=== PATIENT | male | born 1960 | race Caucasian/White ===

== ENCOUNTER 2021-01-20 09:30 | Outpatient (CLI) | payer OTHER, SELFPAY ==
--- NOTE | ~2021-01-20 | CT_ITS ---
EXAMINATION: CT abdomen pelvis wo/w con DATE: 01/20/2021 10:22 INDICATION: Microscopic hematuria TECHNIQUE: Computed tomography (CT) of the abdomen and pelvis was performed without and subsequently with 130 cc Omnipaque 350 intravenous contrast. Automated exposure control and iterative reconstructi on technique were employed. Exam dose: 2901.86 mGy-cm total exam DLP. COMPARISON: None. FINDINGS: Calcified middle lobe and lower lobe pulmonary granulomas and calcified right hilar nodes, consistent with old pulmonary granulomatous disease. The included lung bases are clear of infiltrate or consolidation. Normal heart size. No pericardial or pleural effusion. There are innumerable gallstones prominently variable size, largely filling the gallbladder lumen. Th ere is gallbladder wall thickening up to 5 mm or greater, and mild pericholecystic fat stranding. Fin dings are consistent with chronic or acute cholecystitis. The liver is unremarkable. Normal splenic size. No pancreatic mass lesion or pancreatic duct dilatati on. Approximately 3 mm stone is noted in the distal common bile duct. Normal morphology of the right adrenal gland. Probable 9 mm left adrenal adenoma. There are bilateral renal cysts, measuring up to 2.9 cm on the right, 7.3 cm on the left. No right ur inary tract calculus. Several small nonobstructing left renal calculi measuring up to 2.5 mm. No left ureteral calculus. No hydronephrosis of either kidney. The urinary bladder is unremarkable. Mild prostate enlargement. Prostate calcifications. Normal caliber of the abdominal aorta. No intraperitoneal or retroperitoneal or pelvic mass lesion or adenopathy or ascites. Small fat-containing umbilical hernias. Normal appendix. Minimal sigmoid diverticulosis; no CT evidence of diverticulitis. No bowel obstructi on, bowel wall thickening, pneumatosis or intraperitoneal free air. There is a large lytic expansile lesion with areas of cortical thinning and cortical destruction invo lving the posterior left acetabulum extending into the left ischium and left inferior pubic ramus. Benign appearing lucency of L5 with sclerotic margin. IMPRESSION: Innumerable gallstones Prominent gallbladder wall thickening and minimal pericholecystic fat stranding; findings may be cons istent with chronic or acute cholecystitis 3 mm stone in the distal common bile duct Bilateral renal cysts Several small nonobstructing left renal calculi measuring up to 2.5 mm No ureteral calculi or hydroureteronephrosis of either kidney Mild prostate enlargement; prostate calcifications Minimal sigmoid diverticulosis Large lytic expansile lesion of the posterior left acetabulum extending into the left ischium and lef t inferior pubic ramus Reviewed, dictated and finalized at [facility]. Reviewed, dictated and finalized at [facility]. IMPRESSION: Innumerable gallstones Prominent gallbladder wall thickening and minimal pericholecystic fat stranding ; findings may be consistent with chronic or acute cholecystitis 3 mm stone in the distal common bile duct Bilateral renal cysts Several small nonobstructing left renal calculi measuring up to 2.5 mm No ureteral calculi or hydroureteronephrosis of either kidney Mild prostate enlargement; prostate calcifications Minimal sigmoid diverticulosis Large lytic expansile lesion of the posterior left acetabulum extending into th e left ischium and left inferior pubic ramus
[2021-01-20 10:03] LABS: Estimated Glomerular Filt Rate 48
== END 2021-01-20 09:31 | disposition home or self-care (01) ==
PROVIDERS: PCP Emergency Medicine; Visit Provider Urology
DX: R31.29 Other microscopic hematuria (principal); N28.1 Cyst of kidney, acquired; N20.0 Calculus of kidney; N40.0 Benign prostatic hyperplasia without lower urinary tract symptoms; K57.30 Diverticulosis of large intestine without perforation or abscess without bleeding
CPT/HCPCS: 74178; Q9967

== ENCOUNTER 2021-04-04 10:33 | Outpatient (CLI) | payer OTHER, SELFPAY ==
--- NOTE | ~2021-04-04 | MR_ITS ---
EXAMINATION: MR pelvis wo/w con DATE: 04/04/2021 12:04 INDICATION: Lytic lesion of left ischium. TECHNIQUE: Magnetic resonance imaging (MRI) of the pelvis was performed without and with 20 mL MultiH ance intravenous contrast. Sequences included axial, coronal, and sagittal T1-weighted FSE, T2-weight ed FS FSE, coronal and postcontrast T1-weighted FS FSE. COMPARISON: CT abdomen and pelvis 01/20/2021 FINDINGS: Bone alignment is normal. No fracture. There is a benign bone island in right ilium. There is a heman gioma in L5 vertebral body. There is a mass in left ischium characterized by bone expansion, increase d T2-weighted signal intensity, and contrast enhancement measuring 5.7 x 3.0 x 6.9 cm. The prostate i s mildly enlarged. There is prominent fat in the inguinal canals that may be hernias. There are no pa thologically enlarged lymph nodes. There is no free intraperitoneal fluid. IMPRESSION: 1. 6.9 cm expansile mass in left ischium, stable from 01/20/21. The differential diagnosis includes pl asmacytoma and metastatic disease. Reviewed, dictated and finalized at [facility]. IMPRESSION: 1. 6.9 cm expansile mass in left ischium, stable from 01/20/21. The differential diagnosis includes plasmacytoma and metastatic disease.
[2021-04-04 11:00] LABS: Estimated Glomerular Filt Rate 56
== END 2021-04-04 10:34 | disposition home or self-care (01) ==
LOC: ANHIMG 10:34
PROVIDERS: PCP Emergency Medicine
DX: D21.9 Benign neoplasm of connective and other soft tissue, unspecified (principal); M89.8X5 Other specified disorders of bone, thigh
CPT/HCPCS: 72197; A9577

== ENCOUNTER 2022-01-08 10:02 | Outpatient (CLI) | payer OTHER, SELFPAY ==
--- NOTE | ~2022-01-08 | MR_ITS ---
EXAMINATION: MR pelvis wo/w con DATE: 01/08/2022 11:09 INDICATION: Chondromyxoid fibroma bone TECHNIQUE: Magnetic resonance imaging (MRI) of the pelvis was performed without and with 15 mL Multih ance intravenous contrast. A marker was placed over the mass. Sequences included axial T1-weighted F SE, axial T2-weighted FS FSE, coronal T1-weighted FSE, coronal T2-weighted FS FSE, sagittal T1-weight ed FSE and sagittal T2-weighted FS FSE. Precontrast axial T1-weighted FS FSE and post contrast axial, sagittal and coronal T1-weighted FS FSE were also obtained. COMPARISON: MR dated 03/[address] dated 01/20/2021 FINDINGS: T2 hyperintense avidly enhancing lesion centered in the left ischial extend the short distance anteri angel into the lateral aspect of the inferior pubic ramus and superiorly to the posterior inferior mar gin of the left acetabulum. The lesion measures 7.8 x 3.6 x 4.9 cm which is slightly larger than on t he prior MRI at which time corresponding dimensions were 7.5 x 3.5 x 4.7 cm. There is endosteal scall oping and expansion of the bone which demonstrates a lobular margins along the anterolateral aspect o f the left inferior pubic ramus. Very thin low signal intensity along the margins of the mass suggest ing persistent very thin cortex as seen on earlier CT dated 01/20/2021. Unchanged low signal intensity bone island in the right ilium. T1 hyperintense hemangioma in the L5 vertebral body. No other bone l esions identified. Prostatomegaly. No pathologically enlarged pelvic or inguinal lymphadenopathy. No free fluid in the pelvis. IMPRESSION: 1. 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 Reviewed, dictated and finalized at [facility]. IMPRESSION: 1. Mild increase in size of a now 7.8 x 3.6 x 4.9 cm expansile bone lesion in t he left ischial, per provided history chondral myxoid fibroma, although MRI valorie ging features are nonspecific.
[2022-01-08 10:31] LABS: Estimated Glomerular Filt Rate 56
== END 2022-01-08 10:03 | disposition home or self-care (01) ==
PROVIDERS: PCP Emergency Medicine
DX: D16.9 Benign neoplasm of bone and articular cartilage, unspecified (principal)
CPT/HCPCS: 72197; A9577

== ENCOUNTER 2023-01-13 18:22 | Inpatient (IN) | payer BC, OTHER, SELFPAY ==
[2023-01-13] VITALS (9 sets, daily range): BP systolic 121–191; BP diastolic 75–116; PULSE 114–134; RESP 20–33; TEMP 36.9–38.7; O2SAT 93–99; BMI 31.4
--- NOTE | ~2023-01-13 | XR_ITS ---
EXAMINATION: XR ERCP DATE: 01/14/2023 14:55 CDT INDICATION: STONES . TECHNIQUE: 6 fluoroscopic images of the right upper quadrant were obtained during ERCP performed by t blake surgeon. I was not present in the operating room. Fluoroscopy exposure time was 99.3 seconds. Air Kerma 61.24 mGy. DAP 1.47 mGym2. COMPARISON: Pelvis 01/13/2023 FINDINGS: Multiple gallstones. Small hyperdensity at the distal common duct may represent the previously descri bed stone. An endoscope is advanced into the second portion of the duodenum. Wire access accomplished into the biliary system. IMPRESSION: Fluoroscopic documentation of ERCP. Please refer to the operative note for complete procedural detail s . Reviewed, dictated and finalized at [facility]. IMPRESSION: Fluoroscopic documentation of ERCP. Please refer to the operative note for comp lete procedural details .
--- NOTE | ~2023-01-13 | CT_ITS ---
CT of the Abdomen and Pelvis: Indication: Abdominal pain Technique: 2.5 mm axial scans were obtained through the abdomen and pelvis following intravenous adm inistration of 100 cc of Omnipaque 350. Dose reduction technique was used on this scan by utilizing a utomated exposure control and iterative reconstruction technique. The dose-length product (DLP) was 1 318.08 mGy-cm. COMPARISON: 01/20/2021 Findings: Scans through the lung bases are unremarkable. The liver, spleen, pancreas, and right adrenal gland are within normal limits. Bilateral renal cysts are present. Multiple gallstones are present, probable gallbladder wall thickening and mild perichole cystic inflammatory change. There is a small stone in the distal common bile duct (axial image 81). S table small left adrenal nodule. No evidence of aortic aneurysm. No lymphadenopathy. No bowel obstruction or bowel wall thickening. There is no evidence to suggest acute appendicitis. Images through the pelvis were performed. 3 mm urinary bladder stone. Prostate gland and seminal vesi cles are unremarkable. No ascites. Small fat-containing inguinal hernias are present bilaterally. Impression: Cholelithiasis. Associated gallbladder wall thickening and pericholecystic inflammatory stranding is highly suspicious for superimposed acute cholecystitis. Choledocholithiasis, with probable small stone at the distal common duct. Stable small left adrenal nodule. Stability since 01/20/2021 is compatible with benignity. Reviewed, dictated and finalized at [facility]. Impression: Cholelithiasis. Associated gallbladder wall thickening and pericholecystic infl ammatory stranding is highly suspicious for superimposed acute cholecystitis. Choledocholithiasis, with probable small stone at the distal common duct. Stable small left adrenal nodule. Stability since 01/20/2021 is compatible with benignity.
--- NOTE | ~2023-01-13 | XR_ITS ---
Portable chest x-ray Comparison: None Clinical History: Shortness of breath, fever Findings: There is linear right basilar atelectasis or scarring. Lungs are otherwise clear. Cardiom ediastinal silhouette is stable. Bones and soft tissues are unremarkable. Impression: Linear right basilar atelectasis or scarring, otherwise clear lungs. Reviewed, dictated and finalized at [facility]. Impression: Linear right basilar atelectasis or scarring, otherwise clear lungs.
--- NOTE | 2023-01-13 18:30 | ECG_ITS ---
Measurements Intervals Holcomb Rate: 130 P: 52 HI: 164 QRS: -3 QRSD: 105 T: 5 QT: 327 QTc: 481 Interpretive Statements SINUS TACHYCARDIA POSSIBLE ANTERIOR MYOCARDIAL INFARCTION , OF INDETERMINATE AGE [30 ms Q WAVE IN V3/V4, OR R < 0.2 mV IN V4] ABNORMAL ECG NO PREVIOUS ECG AVAILABLE FOR COMPARISON Electronically Signed On 01-16-2023 9:15:45 CDT by Cristopher Tucker M.D.
[2023-01-13 18:41] LABS: Basophils Absolute Auto 0.1 K/mm3 (0.0-0.1); Basophils Percent Auto 0.5 % (0.2-1.2); Eosinophils Percent Auto 0.2 % (0-4.4); Hematocrit 49.9 % (42.0-52.0); Hemoglobin 17.1 g/dL (14.0-18.0); Immature Granulocyte Absolute 0.08 K/mm3 (0.00-0.031); Immature Granulocyte Percent A 0.5 % (0-0.5); Lymphocytes Absolute Auto 2.84 K/mm3 (0.9-3.2); Lymphocytes Percent Auto 16.1 % (18.3-44.2); Mean Corpuscular HGB Conc 34.3 g/dl (32-36); Mean Corpuscular Hemoglobin 31.1 pg (26-34); Mean Corpuscular Volume 90.7 fl (80-100); Mean Platelet Volume 10.3 fl (7.4-10.4); Monocytes Absolute Auto 1.1 K/mm3 (0.1-0.6); Monocytes Percent Auto 6.3 % (2.6-8.5); Neutrophils Absolute Auto 13.5 K/mm3 (1.3-6.7); Neutrophils Percent Auto 76.4 % (45.5-73.1); Platelet Count Result 264 k/mm3 (150-375); White Blood Count 17.7 K/mm3 (4.5-10.0)
[2023-01-13] MEDS: SODIUM CHLORIDE 0.9% IV 1,000 ML 999 ML IV CONT (18:50)
[2023-01-13] MEDS: ONDANSETRON INJ 4 MG/2 ML VIAL IV PUSH (18:50)
[2023-01-13] MEDS: MORPHINE SULFATE (*CRX) 4 MG/ML INJ IV PUSH (18:50)
[2023-01-13 18:54] LABS: Alanine Aminotransferase 36 U/L (6-50); Albumin Level 4.7 g/dL (3.5-5.1); Alkaline Phosphatase 94 U/L (38-126); Anion Gap 13 mmol/L (8-16); Aspartate Amino Transferase 29 U/L (17-59); Bilirubin,Total 2.8 mg/dL (0.2-1.3); Blood Urea Nitrogen 18 mg/dL (9-20); Carbon Dioxide 27 mmol/L (22-30); Chloride 98 mmol/L (98-107); Estimated CRCL calculation 59 ml/min; Estimated Glomerular Filt Rate 44; Glucose 175 mg/dL (65-110); Potassium 3.3 mmol/L (3.4-5.0); Sodium 138 mmol/L (137-145)
[2023-01-13 18:56] LABS: INR 1.1; Prothrombin Time 15.1 Seconds (11.1-14.7)
[2023-01-13] MEDS: PIPERACILLN/TAZ 3.375GM/NS50ML 3.375 GM/50 ML BAG IVPB ×2 (19:26→23:52)
[2023-01-13] MEDS: ACETAMINOPHEN 325 MG TABLET 650 MG PO (19:26)
[2023-01-13 19:30] LABS: Influenza A QL RT-PCR Negative (Negative); Influenza B QL RT-PCR Negative (Negative); RSV RNA, RT-PCR Negative (Negative); SARS-CoV-2 RNA PCR Negative (Negative)
--- NOTE | 2023-01-13 20:02 | ED.GENADULT ---
HPI - General Adult General Chief complaint: Shortness of Breath/Dyspnea Stated complaint: FEVER, SOB Time Seen by Provider: 01/13/23 18:41 History of Present Illness HPI narrative: Patient is a 63-year-old male who presents ER with sudden onset abdominal pain. Began this evening. Associated with fever has been ongoing throughout the day as well as some shortness of breath due to the pain. Has history of gallstones but denies ever having pain related to his gallstones. Has some nausea but no vomiting. No diarrhea. Denies chest pain or chest pressure or productive cough. No alleviating factors of the pain. No radiation. Mainly right upper quadrant. Patient is having some chills. Related Data Home Medications Medication Instructions Recorded Confirmed amlodipine 5 mg tablet mg 01/13/23 01/13/23 cyclobenzaprine 10 mg tablet mg 01/13/23 metoprolol tartrate 100 mg tablet mg 01/13/23 Allergies Allergy/AdvReac Type Severity Reaction Status Date / Time No Known Allergies Allergy Unknown Unverified 06/08/14 15:51 Review of Systems Review of Systems: All systems reviewed & are unremarkable except as noted in HPI and below Constitutional: Constitutional: Reports chills, Denies fatigue and Reports fever(s) ENT: Denies nasal congestion and Denies sore throat Cardiovascular: Cardiovascular: Denies chest pain, Denies rapid heart rate and Denies radiating jaw, neck or arm pain Respiratory: Respiratory: Denies cough and Reports dyspnea Gastrointestinal: Gastrointestinal: Reports abdominal pain, Denies diarrhea, Reports nausea and Denies vomiting Integumentary/Breasts: Skin/Breast: Denies pruritus, Denies erythema and Denies rash PMF Past Medical History Medical History (Updated 01/13/23 @ 21:07 by Toma Horan NP) Back pain Choledocholithiasis with acute cholecystitis Closed right hand fracture Hypertension Surgical History Surgical History History of removal of pigmented skin lesion History of tonsillectomy Family History Family History Father Malignant neoplasm of prostate Mother Family history of primary malignant neoplasm of liver Social History Social History (Updated 01/13/23 @ 21:02 by Toma Horan NP) Social History: He lives with his who is the power defense attorney. He has 2 children. He works for [employer]. Code status full code Smoking status: Never smoker Alcohol intake: current Exam Narrative: GENERAL: Uncomfortable-appearing, well-nourished, and in mild distress. HEAD: Normocephalic, atraumatic. EYES: PERRL and EOMI. ENT: Mucous membranes moist. CHEST: Clear to auscultation. No respiratory distress. HEART: Tachycardic and regular. Normal peripheral pulses. ABDOMEN: Soft, RUQ tenderness with guarding, nondistended, normal active bowel sounds. EXTREMITIES: Normal range of motion. No edema. SKIN: Warm, dry, no rash. NEURO: Alert and oriented x3. PSYCH: Normal mood and affect. Course Course Emergency Course: Patient's pain improving after Dilaudid, minimal improvement with morphine. Tylenol given for fever. Patient being hydrated and will be kept n.p.o. Both GI and general surgery consulted. Admitted to the hospitalist service. Patient has received IV Zosyn. Blood pressure improved after pain control Vital Signs Vital signs: Vital Signs Temperature 98.7 F 01/13/23 18:27 Pulse Rate 131 H 01/13/23 18:27 Respiratory Rate 30 H 01/13/23 18:27 Blood Pressure 191/102 H 01/13/23 18:27 Pulse Oximetry 95 01/13/23 18:27 Oxygen Delivery Room Air 01/13/23 18:27 Temperature 100.3 F H 01/13/23 20:31 Pulse Rate 130 H 01/13/23 20:31 Respiratory Rate 32 H 01/13/23 20:31 Blood Pressure 157/89 H 01/13/23 20:31 Pulse Oximetry 94 01/13/23 20:31 Oxygen Delivery Nasal Cannula 01/13/23 20:15 Oxygen Flow Rate
[2023-01-13] MEDS: HYDROmorphone HCL INJ (*CRX) 1 MG/ML SYR IV PUSH ×2 (20:08→21:49)
--- NOTE | 2023-01-13 20:15 | PC.NURSE ---
Patient began falling asleep and SPO2 dropped down to 88%. Patient was given O2 via nasal cannula at 2L/min. Patient's SPO2 was then 93%.
[2023-01-13 20:16] LABS: Lipase 355 U/L (23-300)
--- NOTE | 2023-01-13 20:34 | PM.IMHP ---
H&P: HPI History of Present Illness Date/Time: 01/13/23 20:34 Chief Complaint: Shortness of breath Narrative: This is a 63-year-old male patient who has a history of having chronic back pain and hypertension. The patient stated that he has been sick for 3 days with right epigastric pain with nausea vomiting. He is having difficulty taking a deep breath and catching his breath. He has no prior heart or lung issues. His white count is 17.7. He has a shift to the left with neutrophil percentage 76.4. Creatinine is 1.6. GFR is 44 glucose is 175. Total bilirubin is 2.8. Lipase is 355. The patient is negative for influenza A/B RSV and COVID. His blood pressure is 157/89, pulse is 130, respirations 32 and temperature 37.9?. Abdominal pelvis CT was read as the followingholelithiasis. Associated gallbladder wall thickening and pericholecystic inflammatory stranding is highly suspicious for superimposed acute cholecystitis. Choledocholithiasis, with probable small stone at the distal common duct. Stable small left adrenal nodule. Stability since 01/20/2021 is compatible with benignity. Chest x-ray was read as linear right basilar atelectasis or scarring otherwise clear lungs. The patient has oxygen on at 2 L per nasal cannula and does not typically wear home oxygen. The patient was given morphine, Zofran, IV fluids, Zosyn, Tylenol, and Dilaudid. Surgery and GI have been consulted. The patient remains NPO but is requesting something to drink at this time. I explained to him that eating something would cause the gallbladder to spasm and cause him more pain. The patient is stating that he would like to have some ice chips. The patient is being admitted to observation status on the date of service of 01/13/2023. Review of Systems Review of Systems: All systems reviewed & are unremarkable except as noted in HPI and below Constitutional: Constitutional: Reports as per HPI and Reports no additional constitutional complaints Eyes: Eyes: Reports as per HPI and Reports no additional eye complaints ENT: Reports system reviewed and no additional complaints, except as documented and Reports Normal hearing present Cardiovascular: Cardiovascular: Reports no additional cardiovascular complaints Respiratory: Respiratory: Reports no additional respiratory complaints and Reports no additional respiratory complaints Gastrointestinal: Gastrointestinal: Reports as per HPI and Reports no additional gastrointestinal complaints Musculoskeletal: Musculoskeletal: Reports no additional musculoskeletal complaints Integumentary/Breasts: Skin/Breast: Reports system reviewed and no additional complaints, except as docu and Reports as per HPI Neurologic: Reports system reviewed and no additional complaints, except as documented, Reports as per HPI and Reports Normal hearing present Psychiatric: Psychiatric: Reports no additional psychiatric complaints and Reports as per HPI Endocrine: Endocrine: Reports no additional endocrine complaints Hematologic/Lymphatic: Hematologic/Lymphatic: Reports no additional hematologic/lymphatic complaints Allergic/Immunologic: Allergic/Immunologic: Reports no additional allergic/immunologic complaints [facility], [facility] Past Medical History Medical History (Updated 01/13/23 @ 21:07 by Toma Horan NP) Back pain Choledocholithiasis with acute cholecystitis Closed right hand fracture Hypertension Surgical History Surgical History History of removal of pigmented skin lesion History of tonsillectomy Family History Family History Father Malignant neoplasm of prostate Mother Family history of primary malignant neoplasm of liver Social History Social History (Updated 01/13/23 @ 21:02 by Toma Horan NP) Social History: He lives with his who is the power research attorney. He has 2 children. He works for [employer]
[2023-01-13 20:45] LABS: Lactic Acid Reflex 1.6 mmol/L (0.7-2.0)
--- NOTE | 2023-01-13 21:15 | ADMGEN ---
This patient, Erlinda Boles, was admitted to IMU Room 213-01. Patient/family oriented to hospital policies and general routines including ID bracelet, bed and alarms, visiting hours, pain management, procedures, bathroom and other care routines, personal items, smoking policy, room service/diet, and visiting hours. Information on how to activate the Rapid Response Team has been discussed. Patient/Family are encouraged to report perceived risks to care and to ask questions if they do not understand what they are told or what they should do.
[2023-01-13] MEDS: SODIUM CHLORIDE 0.9% IV 1,000 ML 125 ML IV CONT (21:44)
[2023-01-13 22:42] LABS: Appearance Urine Clear (Clear); Bilirubin Urine 1+ (Negative); Blood Urine Trace-lysed (Negative); Color Urine Yellow (Yellow); Glucose Urine UA Negative (Negative); Ketones Urine 2+ mg/dL (Negative); Leukocyte Esterase Ur Negative LEU/UL (Negative); Nitrate Urine Negative (Negative); Protein Urine 2+ mg/dL (Negative); Specific Grav Ur <= 1.005 (1.001-1.035); Urobilinogen Urine 0.2 mg/dL (<2.0); pH Urine 5.5 (5.0-9.0)
[2023-01-13 23:00] LABS: Add Urine Microscopic? YES
[2023-01-13 23:01] LABS: RBC Urine 0-2 /hpf (0-2); WBC Urine 0-5 /hpf (0-3)
[2023-01-14] VITALS (29 sets, daily range): BP systolic 97–187; BP diastolic 55–96; PULSE 68–129; RESP 16–22; TEMP 36.4–39.6; O2SAT 89–97
[2023-01-14 04:43] LABS: Basophils Percent Auto 0.3 % (0.2-1.2); Hematocrit 42.7 % (42.0-52.0); Hemoglobin 14.5 g/dL (14.0-18.0); Immature Granulocyte Absolute 0.05 K/mm3 (0.00-0.031); Immature Granulocyte Percent A 0.4 % (0-0.5); Lymphocytes Absolute Auto 1.01 K/mm3 (0.9-3.2); Lymphocytes Percent Auto 8.5 % (18.3-44.2); Mean Corpuscular Hemoglobin 30.9 pg (26-34); Mean Corpuscular Volume 90.9 fl (80-100); Mean Platelet Volume 10.8 fl (7.4-10.4); Monocytes Absolute Auto 0.7 K/mm3 (0.1-0.6); Monocytes Percent Auto 5.6 % (2.6-8.5); Neutrophils Absolute Auto 10.1 K/mm3 (1.3-6.7); Neutrophils Percent Auto 85.2 % (45.5-73.1); Platelet Count Result 189 k/mm3 (150-375); Red Cell Distribution Width 12.9 % (11.5-14.5); White Blood Count 11.8 K/mm3 (4.5-10.0)
[2023-01-14 04:54] LABS: Alanine Aminotransferase 29 U/L (6-50); Albumin Level 3.5 g/dL (3.5-5.1); Alkaline Phosphatase 59 U/L (38-126); Anion Gap 8 mmol/L (8-16); Aspartate Amino Transferase 24 U/L (17-59); Bilirubin,Total 2.4 mg/dL (0.2-1.3); Blood Urea Nitrogen 20 mg/dL (9-20); Calcium 7.8 mg/dL (8.4-10.2); Carbon Dioxide 25 mmol/L (22-30); Chloride 104 mmol/L (98-107); Estimated CRCL calculation 66 ml/min; Estimated Glomerular Filt Rate 51; Glucose 138 mg/dL (65-110); Lactate Dehydrogenase 128 U/L (120-246); Lipase 43 U/L (23-300); Magnesium 1.8 mg/dL (1.6-2.3); Potassium 3.8 mmol/L (3.4-5.0); Sodium 137 mmol/L (137-145)
[2023-01-14 04:55] LABS: Lactic Acid Reflex 1.6 mmol/L (0.7-2.0)
[2023-01-14 05:06] LABS: Hemoglobin A1C 5.4 % (<5.7)
[2023-01-14 05:46] LABS: Thyroid Stimulating Hormone Reflex 0.873 uIU/mL (0.465-4.68)
[2023-01-14] MEDS: PIPERACILLN/TAZ 3.375GM/NS50ML 3.375 GM/50 ML BAG IVPB ×4 (05:48→22:56)
[2023-01-14] MEDS: SODIUM CHLORIDE 0.9% IV 1,000 ML 125 ML IV CONT (05:48)
--- NOTE | 2023-01-14 06:56 | WPDGICN ---
Assessment and Plan Assessment and plan (1) Choledocholithiasis with acute cholecystitis: Code(s): K80.42 - Calculus of bile duct with acute cholecystitis without obstruction Status: Acute Assessment and Plan: I discussed the common bile duct stone with the patient using a diagram. Although CT from 2 years ago also showed a stone in the distal duct he has not had any significant attacks between then and now and cannot recall how he felt med for CT scan was done. I described ERCP and sphincterotomy CT scan shows: There are innumerable gallstones prominently variable size, largely filling the gallbladder lumen. There is gallbladder wall thickening up to 5 mm or greater, and mild pericholecystic fat stranding. Findings are consistent with chronic or acute cholecystitis. The liver is unremarkable. Normal splenic size. No pancreatic mass lesion or pancreatic duct dilatation. Approximately 3 mm stone is noted in the distal common bile duct. Normal morphology of the right adrenal gland. Probable 9 mm left adrenal adenoma (2) Hyperbilirubinemia: Code(s): E80.6 - Other disorders of bilirubin metabolism Status: Acute Assessment and Plan: bilirubin is 2.8. He did notice his urine was much darker yesterday. He has had no itching. He did not see any visible discoloration of his eyes. Plan ERCP and sphincterotomy with possible stent placement today. I discussed with him the procedure in also possible risks such as bleeding or perforation of the possibility of pancreatitis. Pancreatitis could result in prolonged hospitalization and rare cases even surgery. GI Consult Note Consult date/time: 01/14/23 06:56 HPI: Erlinda Boles is a 63 year old male Who presents emergency room yesterday for having been uncomfortable for the past 3 days with epigastric pain and nausea and vomiting. It would be more painful when he tried to take a deep breath. He does not believe that he was running a fever. As the pain got worse yesterday he also noticed that his urine was becoming darker. He was found in the emergency room to have a bilirubin of 2.8. Lipase is also elevated though transaminases are in the normal range. CT scan did show coli lithiasis and choledocholithiasis with a stone in the distal common bile duct. In comparison to a CT scan in 2020 that Study also showed a small stone in the distal common bile duct. He cannot recall whether he had pain with that; he was never told about that finding. Review of Systems Review of Systems: All systems reviewed & are unremarkable except as noted in HPI and below PMFSH Past Medical History Medical History (Updated 01/14/23 @ 06:59 by Aram Maria MD) Back pain Choledocholithiasis with acute cholecystitis Closed right hand fracture Hypertension Surgical History Surgical History History of removal of pigmented skin lesion History of tonsillectomy Family History Family History Father Malignant neoplasm of prostate Mother Family history of primary malignant neoplasm of liver Social History Social History Social History: He lives with his who is the power collections attorney. He has 2 children. He works for [employer]. Code status full code Smoking status: Never smoker Alcohol intake: never Substance use: never Lack of Transportation: No Lack of Food: Never True Current Housing: I Have Housing Concerned About Future Housing: No Difficulty Paying Gas/Electric Bills: No Difficulty Paying for Meds: No Currently Unemployed: No Education: High School Diploma/GED Difficulty w/ Childcare or Family Care: No Spiritual care concerns: No Meds Home Medications and Allergies Home Medications Medication Instructions Recorded Confirmed Ty
[2023-01-14] MEDS: HYDROmorphone HCL INJ (*CRX) 1 MG/ML SYR IV PUSH (08:45)
[2023-01-14] MEDS: amLODIPine BESYLATE 5 MG TABLET PO (08:47)
[2023-01-14] MEDS: METOPROLOL TARTRATE 50 MG TAB 100 MG PO ×2 (08:47→20:29)
--- NOTE | 2023-01-14 09:04 | PM.IMPN ---
Progress Note: A&P Assessment and Plan (1) Choledocholithiasis with acute cholecystitis: Code(s): K80.42 - Calculus of bile duct with acute cholecystitis without obstruction Status: Acute Assessment and Plan: GI is consulted as is General surgery. Patient understands he is having ERCP. (2) Sepsis: Code(s): A41.9 - Sepsis, unspecified organism Status: Acute Assessment and Plan: Due to acute cholecystitis. Patient on Zosyn. (3) Hyperbilirubinemia: Code(s): E80.6 - Other disorders of bilirubin metabolism Status: Acute Assessment and Plan: Due to choledocholithiasis (4) Hypertension: Code(s): I10 - Essential (primary) hypertension Status: Acute Assessment and Plan: Continue metoprolol and amlodipine. Blood pressure reviewed 01/14 Plan ERCP then possible cholecystectomy Continue antibiotics Antipyretics IV fluids Telemetry Remain on IMU Time Spent With Patient Time with patient: 25 - 35 minutes Subjective Date/time seen: 01/14/23 09:04 Interval history: This is a 63-year-old male patient who was admitted to the hospital due to fever, abdominal pain and nausea vomiting. Patient found to have acute cholecystitis and choledocholithiasis. He is noted to be running a fever and chills this morning. Patient is on IV Zosyn and sepsis panel has been drawn with blood cultures in process from the ER. Patient reports that he is supposed to have ERCP today. Review of Systems Review of Systems: All systems reviewed & are unremarkable except as noted in HPI and below Exam Narrative: GENERAL: Moderately ill-appearing, alert and oriented. He is currently experiencing chills with fever. He is pleasant and conversant in full sentences. HEENT: Pupils are equally round and briskly reactive to light. Extraocular muscles are intact. Oral mucous membranes are moist without lesions. NECK: The patient has no noted JVD. No adenopathy is appreciated. CHEST/LUNGS: Lungs are clear bilaterally without rhonchi, rales, or wheezes. There is no subcutaneous air appreciated. There is no tenderness to the chest wall. HEART: The patient has a tachycardic rate and regular rhythm. No murmurs, rubs, or gallops are appreciated. Distal pulses are 2+. ABDOMEN: The patient?s abdomen tender epigastric right upper quadrant mildly distended with hypoactive bowel sounds. EXTREMITIES: The patient has no peripheral edema. There is no focal long bone tenderness or deformity. SKIN: The patient?s skin is warm and dry, without rashes or lesions. PSYCHIATRIC: The patient has normal mental status and has an appropriate affect. NEUROLOGIC: There are no gross deficits to the cranial nerves. Patient ambulates with steady gait. Objective Data Vital Signs Vital Signs: Vital Signs - 24 hr 01/13/23 18:27 01/13/23 18:45 01/13/23 19:20 Temperature 37.1 C Pulse Rate 131 H 130 H Respiratory Rate 30 H Blood Pressure 191/102 H Pulse Oximetry 95 Oxygen Delivery Room Air Room Air Oxygen Flow Rate 01/13/23 19:20 01/13/23 19:56 01/13/23 20:15 Temperature 38.6 C H 38.7 C H Pulse Rate 128 H Respiratory Rate 33 H Blood Pressure 189/116 H Pulse Oximetry 93 93 Oxygen Delivery Nasal Cannula Oxygen Flow Rate 2 01/13/23 20:31 01/13/23 21:28 01/13/23 22:00 Temperature 37.9 C H 37.4 C Pulse Rate 130 H 134 H 119 H Respiratory Rate 32 H 20 Blood Pressure 157/89 H 122/79 Pulse Oximetry 94 99 Oxygen Delivery Oxygen Flow Rate 01/13/23 21:26 01/13/23 21:30 01/13/23 23:21 Temperature 36.9 C Pulse Rate 124 H 114 H Respiratory Rate 20 Blood Pressure 121/75 Pulse Oximetry 97 Oxygen Delivery Room Air Oxygen Flow Rate 01/14/23 00:00 01/14/23 00:00 01/14/23 02:00 Temperature Pulse Rate 106 H 103 H Respiratory Rate Blood Pressure Pulse Oximetry Oxygen Delivery Room Air Oxygen Flow Rate 01/14/23 03:44 01/14/23 04
--- NOTE | 2023-01-14 12:23 | PM.CNGS ---
Assessment and Plan Assessment and plan (1) Acute cholangitis: Code(s): K83.09 - Other cholangitis Status: Acute Assessment and Plan: Patient has signs of acute cholecystitis, cholelithiasis, choledocholithiasis. Is having fevers signs of sepsis concerning for acute cholangitis. He has already been seen by Dr. Maria and plans are ERCP today. Discussed planning laparoscopic cholecystectomy based on ERCP results. Continue IV antibiotics and supportive care at this time. (2) Sepsis: Code(s): A41.9 - Sepsis, unspecified organism Status: Acute (3) Choledocholithiasis with acute cholecystitis: Code(s): K80.42 - Calculus of bile duct with acute cholecystitis without obstruction Status: Acute (4) Hypertension: Code(s): I10 - Essential (primary) hypertension Status: Acute History of Present Illness Consult details Consult date: 01/14/23 Reason for consult: other (cholecystitis) Requesting physician: Stanislaw Mary MD Narrative: This is a 63-year-old man who I am asked to see for acute cholecystitis. He presented to the emergency department yesterday with abdominal pain, nausea, vomiting, and fevers. He states that the fever started on Saturday and he was just generally feeling unwell. He began experiencing the abdominal pain yesterday. He was told he gallstones several years ago but surgery was never recommended at time. I believe his workup at that time was for hematuria and the gallstones were an incidental finding. He does not recall any particular food that he ate that caused his pain or fevers this time. In the emergency department he was noted to have signs of sepsis with fever, tachycardia, and leukocytosis. CT showed evidence of cholelithiasis with cholecystitis and choledocholithiasis. He was admitted and started on broad-spectrum IV antibiotics. He has not noticed any real significant improvement in his pain and he is still spiking fevers. Review of Systems Review of Systems: All systems reviewed & are unremarkable except as noted in HPI and below Constitutional: Constitutional: Reports chills and Reports fever(s) Eyes: Eyes: Denies change in vision ENT: Denies hearing loss, Denies neck pain and Denies sore throat Cardiovascular: Cardiovascular: Denies chest pain and Denies dyspnea Respiratory: Respiratory: Denies cough, Denies dyspnea and Denies wheezing Gastrointestinal: Gastrointestinal: Reports as per HPI Genitourinary: Genitourinary: Denies hematuria and Denies dysuria Musculoskeletal: Musculoskeletal: Denies arthralgias, Denies joint swelling and Denies neck pain Allergic/Immunologic: Allergic/Immunologic: Denies wheezing [facility] Past Medical History Medical History Back pain Choledocholithiasis with acute cholecystitis Closed right hand fracture Hypertension Surgical History Surgical History History of removal of pigmented skin lesion History of tonsillectomy Family History Family History Father Malignant neoplasm of prostate Mother Family history of primary malignant neoplasm of liver Social History Social History Social History: He lives with his who is the power associate attorney. He has 2 children. He works for [employer]. Code status full code Smoking status: Never smoker Alcohol intake: never Substance use: never Lack of Transportation: No Lack of Food: Never True Current Housing: I Have Housing Concerned About Future Housing: No Difficulty Paying Gas/Electric Bills: No Difficulty Paying for Meds: No Currently Unemployed: No Education: High School Diploma/GED Difficulty w/ Childcare or Family Care: No Spiritual care concerns: No Meds Home Medications and Al
[2023-01-14] MEDS: ACETAMINOPHEN 500 MG TABLET 1000 MG PO (12:27)
[2023-01-14] MEDS: LACTATED RINGERS 1,000 ML 150 ML IV CONT (14:06)
--- NOTE | 2023-01-14 14:18 | WPDANESEPPF ---
Anes - Initial Pre Proc Eval Procedure: Operation Date: 01/14/23 15:30 Proposed Procedures p Endoscopic Retro Cholangiopancreatogram - Aram Maria MD Date/Time: 01/14/23 14:18 Surgeon: Blessing Domingo DO Pre Op Diagnosis: Acute Cholecysitis,Choledocolithiasis Patient Data Age: 63 Gender: M Height: 1.91 m Weight: 114 kg Last Vital Signs Temp 97.5 F L 01/14/23 14:07 Pulse 86 01/14/23 14:07 Resp 20 01/14/23 14:07 BP 128/68 01/14/23 14:07 Pulse Ox 93 01/14/23 14:07 O2 Del Method Room Air 01/14/23 14:07 O2 Flow Rate 2 01/13/23 20:15 Allergies Allergy/AdvReac Type Severity Reaction Status Date / Time No Known Allergies Allergy Unknown Unverified 01/14/23 14:04 Home Medications Medication Instructions Recorded Confirmed Type amlodipine 5 mg tablet 5 mg PO DAILY 01/13/23 01/13/23 History cyclobenzaprine 10 mg tablet 10 mg PO TID 01/13/23 01/13/23 History metoprolol tartrate 100 mg tablet 100 mg PO BID 01/13/23 01/13/23 History Laboratory Tests 01/13/23 01/13/23 01/13/23 18:35 18:38 18:49 WBC 17.7 H K/mm3 (4.5-10.0) RBC 5.50 M/mm3 (4.6-6.20) Hgb 17.1 g/dL (14.0-18.0) Hct 49.9 % (42.0-52.0) MCV 90.7 fl (80-100) MCH 31.1 pg (26-34) MCHC 34.3 g/dl (32-36) RDW 13.0 % (11.5-14.5) Plt Count 264 k/mm3 (150-375) MPV 10.3 fl (7.4-10.4) Immature Gran % (Auto) 0.5 % (0-0.5) Neut % (Auto) 76.4 H % (45.5-73.1) Lymph % (Auto) 16.1 L % (18.3-44.2) [place] % (Auto) 6.3 % (2.6-8.5) Eos % (Auto) 0.2 % (0-4.4) Baso % (Auto) 0.5 % (0.2-1.2) Lymph # (Auto) 2.84 K/mm3 (0.9-3.2) [place] # (Auto) 1.1 H K/mm3 (0.1-0.6) Eos # (Auto) 0.0 K/mm3 (0-0.3) Baso # (Auto) 0.1 K/mm3 (0.0-0.1) Abs Immat Gran (auto) 0.08 H K/mm3 (0.00-0.031) Absolute Neuts (auto) 13.5 H K/mm3 (1.3-6.7) Absolute Nucleated RBC 0.0 K/mm3 (0.0-0.012) Nucleated RBC % 0.0 % (0.0-0.2) PT 15.1 H Seconds (11.1-14.7) INR 1.1 APTT 32.0 SECONDS (22.3-36.8) Sodium 138 mmol/L (137-145) Potassium 3.3 L mmol/L (3.4-5.0) Chloride 98 mmol/L (98-107) Carbon Dioxide 27 mmol/L (22-30) Anion Gap 13 mmol/L (8-16) BUN 18 mg/dL (9-20) Creatinine 1.60 H mg/dL (0.7-1.3) Estim Creat Clear Calc 59 ml/min Estimated GFR 44 L (59 - ) Glucose 175 H mg/dL (65-110) Hemoglobin A1c Lactic Acid Calcium 9.0 mg/dL (8.4-10.2) Magnesium Total Bilirubin 2.8 H mg/dL (0.2-1.3) AST 29 U/L (17-59) ALT 36 U/L (6-50) Alkaline Phosphatase 94 U/L (38-126) Lactate Dehydrogenase Total Protein 9.0 H g/dL (6.3-8.2) Albumin 4.7 g/dL (3.5-5.1) Lipase 355 H U/L (23-300) TSH (Reflex) Urine Color Urine Appearance Urine pH Ur Specific [place] Urine Protein Urine Glucose (UA) Urine Ketones Ur Blood (Man) Urine Nitrate Urine Bilirubin Urine Urobilinogen Leukocyte Esterase Rfl Urine RBC Urine WBC Influenza A (RT-PCR) Negative (Negative) Influenza B (RT-PCR) Negative (Negative) RSV (RT-PCR) Negative (Negative) SARS-CoV-2 RNA (RT-PCR) Negative (Negative) 01/13/23 01/13/23 01/14/23 20:31 21:08 04:16 WBC 11.8 H K/mm3 (4.5-10.0) RBC 4.70 M/mm3 (4.6-6.20) Hgb 14.5 g/dL (14.0-18.0) Hct 42.7 % (42.0-52.0) MCV 90.9 fl (
[2023-01-14] MEDS: INDOMETHACIN 50 MG SUPP.RECT RECTAL (14:46)
--- NOTE | 2023-01-14 15:42 | SUR.PHASEII ---
Patient's O2 saturations are baseline around 90-92%. This was also patients baseline preoperatively. Informed CAMILO Barajas. Order placed for incentive spirometry. No other orders at this time. CHIEF MINISTER declines [place] oxygen at this time. Informed inpatient RN Talya to bring this to hospitalist attention.
[2023-01-15] VITALS (20 sets, daily range): BP systolic 120–157; BP diastolic 71–99; PULSE 64–86; RESP 15–22; TEMP 35.6–37.2; O2SAT 90–98
[2023-01-15 04:44] LABS: Hematocrit 41.7 % (42.0-52.0); Hemoglobin 13.6 g/dL (14.0-18.0); Mean Corpuscular HGB Conc 32.6 g/dl (32-36); Mean Corpuscular Hemoglobin 30.4 pg (26-34); Mean Corpuscular Volume 93.3 fl (80-100); Mean Platelet Volume 10.9 fl (7.4-10.4); Platelet Count Result 212 k/mm3 (150-375); Red Blood Count 4.47 M/mm3 (4.6-6.20); Red Cell Distribution Width 12.6 % (11.5-14.5); White Blood Count 12.9 K/mm3 (4.5-10.0)
[2023-01-15 04:59] LABS: Alanine Aminotransferase 26 U/L (6-50); Albumin Level 3.3 g/dL (3.5-5.1); Alkaline Phosphatase 59 U/L (38-126); Anion Gap 8 mmol/L (8-16); Aspartate Amino Transferase 30 U/L (17-59); Bilirubin,Total 1.6 mg/dL (0.2-1.3); Blood Urea Nitrogen 29 mg/dL (9-20); Carbon Dioxide 19 mmol/L (22-30); Chloride 105 mmol/L (98-107); Estimated CRCL calculation 71 ml/min; Estimated Glomerular Filt Rate 56; Glucose 132 mg/dL (65-110); Potassium 3.6 mmol/L (3.4-5.0); Sodium 132 mmol/L (137-145)
[2023-01-15] MEDS: PIPERACILLN/TAZ 3.375GM/NS50ML 3.375 GM/50 ML BAG IVPB ×4 (05:34→23:52)
--- NOTE | 2023-01-15 09:01 | PM.IMPN ---
Progress Note: A&P Assessment and Plan (1) Acute cholangitis: Code(s): K83.09 - Other cholangitis Status: Acute Assessment and Plan: Gram-negative bacteremia with sepsis due to choledocholithiasis with acute cholecystitis and acute cholangitis (2) Choledocholithiasis with acute cholecystitis: Code(s): K80.42 - Calculus of bile duct with acute cholecystitis without obstruction Status: Acute Assessment and Plan: 01/15: Patient status post ERCP with cholecystectomy today (3) Sepsis: Code(s): A41.9 - Sepsis, unspecified organism Status: Acute Assessment and Plan: Due to acute cholangitis. Patient on Zosyn. Gram-negative bacilli in anaerobic bottle 1 of 2 cultures. Repeat cultures have been ordered. (4) Hypertension: Code(s): I10 - Essential (primary) hypertension Status: Acute Assessment and Plan: Continue metoprolol and amlodipine. Blood pressure reviewed 01/14 Plan Cholecystectomy today. Continue antibiotics. Transfer to Med/Surg Time Spent With Patient Time with patient: 25 - 35 minutes Subjective Date/time seen: 01/15/23 09:01 Interval history: 01/14: This is a 63-year-old male patient who was admitted to the hospital due to fever, abdominal pain and nausea vomiting. Patient found to have acute cholecystitis and choledocholithiasis. He is noted to be running a fever and chills this morning. Patient is on IV Zosyn and sepsis panel has been drawn with blood cultures in process from the ER. Patient reports that he is supposed to have ERCP today. 01/15: Patient denies fever chills overnight. He states some right upper quadrant pain. He is supposed to go to the operating room for cholecystectomy today. Blood cultures positive for Gram-negative bacilli. Patient on Zosyn. Ordered repeat blood cultures and patient transferred to 3 Med/Surg. Review of Systems Review of Systems: All systems reviewed & are unremarkable except as noted in HPI and below Exam Narrative: GENERAL: alert and oriented, appears more comfortable HEENT: Pupils are equally round and briskly reactive to light. Extraocular muscles are intact. Oral mucous membranes are moist without lesions. NECK: The patient has no noted JVD. No adenopathy is appreciated. CHEST/LUNGS: Lungs are clear bilaterally without rhonchi, rales, or wheezes. HEART: The patient has a regular rate and regular rhythm. No murmurs, rubs, or gallops are appreciated. Distal pulses are 2+. ABDOMEN: The patient?s abdomen tender epigastric right upper quadrant mildly distended with hypoactive bowel sounds. EXTREMITIES: The patient has no peripheral edema. There is no focal long bone tenderness or deformity. SKIN: The patient?s skin is warm and dry, without rashes or lesions. PSYCHIATRIC: The patient has normal mental status and has an appropriate affect. NEUROLOGIC: There are no gross deficits to the cranial nerves. Patient ambulates with steady gait. Objective Data Vital Signs Vital Signs: Vital Signs - 24 hr 01/14/23 09:16 01/14/23 10:15 01/14/23 12:27 Temperature 38.1 C H 39.6 C H Pulse Rate 129 H Respiratory Rate Blood Pressure Pulse Oximetry 92 Oxygen Delivery Room Air Oxygen Flow Rate 01/14/23 12:00 01/14/23 10:00 01/14/23 12:00 Temperature 37.1 C Pulse Rate 124 H 92 127 H Respiratory Rate 19 Blood Pressure 187/95 H Pulse Oximetry 89 L Oxygen Delivery Oxygen Flow Rate 01/14/23 12:00 01/14/23 14:07 01/14/23 15:17 Temperature 36.4 C L 37.2 C Pulse Rate 86 89 Respiratory Rate 20 16 Blood Pressure 128/68 123/70 Pulse Oximetry 93 97 Oxygen Delivery Room Air Room Air Simple Face Mask Oxygen Flow Rate 10 01/14/23 15:22 01/14/23 15:27 01/14/23 15:37 Temperature 37.2 C Pulse Rate 89 90 90 Respiratory Rate 20 22 H 20 Blood Pressure 97/64 L 114/70 115/73 Pulse Oximetry 97 92 91 Oxygen Delivery Simple Face Mask Room Air Room Air Oxygen
[2023-01-15] MEDS: METOPROLOL TARTRATE 50 MG TAB 100 MG PO ×2 (09:08→20:57)
[2023-01-15] MEDS: amLODIPine BESYLATE 5 MG TABLET PO (09:08)
--- NOTE | 2023-01-15 09:09 | WPDANESPN ---
Anes - Prog Note Post-Op Date/Time: 01/15/23 09:09 Cardiovascular status: normal Respiratory status: normal Airway patency: baseline Mental status: baseline Post-Op hydration status: normal Vital Signs: Last Vital Signs Temp 35.6 C L 01/15/23 07:56 Pulse 72 01/15/23 07:56 Resp 20 01/15/23 07:56 BP 146/81 H 01/15/23 07:56 Pulse Ox 98 01/15/23 07:56 O2 Del Method Room Air 01/15/23 04:00 O2 Flow Rate 10 01/14/23 15:22 Pain Score (VAS): 0 I/O: Intake & Output 01/14/23 01/15/23 01/15/23 23:59 07:59 15:59 Intake Total 980 Balance 980 Laboratory Tests 01/15/23 04:29 01/15/23 04:29 01/15/23 04:29 WBC 12.9 H RBC 4.47 L Hgb 13.6 L Hct 41.7 L MCV 93.3 MCH 30.4 MCHC 32.6 RDW 12.6 Plt Count 212 MPV 10.9 H Sodium 132 L Potassium 3.6 Chloride 105 Carbon Dioxide 19 L Anion Gap 8 BUN 29 H Creatinine 1.30 Estim Creat Clear Calc 71 Estimated GFR 56 L Glucose 132 H Calcium 8.0 L Total Bilirubin 1.6 H AST 30 ALT 26 Alkaline Phosphatase 59 Total Protein 6.0 L Albumin 3.3 L Microbiology 01/13/23 21:53 Blood Blood Culture - Preliminary Gram negative bacilli isolated 01/13/23 21:58 Blood Blood Culture - Preliminary Post-procedural complaints: none Patient Feedback: Patient satisfied with anesthetic care.
--- NOTE | 2023-01-15 09:48 | PC.NURSE ---
This patient, Erlinda Boles, was transferred to [3rd med surg ] on 01/15/23 at 0949. Personal belongings sent with patient. Report given to [Maria Victoria ]. Vitals stable and at bedside with patient. Appropriate documentation sent with patient.
[2023-01-15] MEDS: LACTATED RINGERS 1,000 ML 30 ML IV CONT ×2 (13:50→17:03)
--- NOTE | 2023-01-15 15:07 | WPDHPUPDATE1 ---
History and Physical Update Update Date/Time: 01/15/23 15:07 History and Physical has been reviewed, including an updated exam of the patient. There are NO changes in the patient's condition. Risks, benefits, and alternatives have been discussed and questions answered. Patient agrees to proceed with procedure.
--- NOTE | 2023-01-15 15:11 | WPDANESEPPF ---
Anes - Initial Pre Proc Eval Procedure: Operation Date: 01/14/23 15:30 Proposed Procedures p Endoscopic Retro Cholangiopancreatogram - Aram Maria MD Operation Date: 01/15/23 15:00 Proposed Procedures p Laparoscopic Cholecystectomy Possible Open - Gregory Gordon DO Date/Time: 01/15/23 15:11 Surgeon: Blessing Domingo DO Pre Op Diagnosis: Acute Cholecysitis,Choledocolithiasis Patient Data Age: 63 Gender: M Height: 1.91 m Weight: 114 kg Last Vital Signs Temp 36.7 C 01/15/23 10:15 Pulse 73 01/15/23 10:15 Resp 20 01/15/23 10:15 BP 120/75 01/15/23 10:15 Pulse Ox 95 01/15/23 10:15 O2 Del Method Room Air 01/15/23 04:00 O2 Flow Rate 10 01/14/23 15:22 Allergies Allergy/AdvReac Type Severity Reaction Status Date / Time No Known Allergies Allergy Unknown Verified 01/15/23 14:15 Home Medications Medication Instructions Recorded Confirmed Type amlodipine 5 mg tablet 5 mg PO DAILY 01/13/23 01/13/23 History cyclobenzaprine 10 mg tablet 10 mg PO TID 01/13/23 01/13/23 History metoprolol tartrate 100 mg tablet 100 mg PO BID 01/13/23 01/13/23 History Laboratory Tests 01/15/23 04:29 WBC 12.9 H K/mm3 (4.5-10.0) RBC 4.47 L M/mm3 (4.6-6.20) Hgb 13.6 L g/dL (14.0-18.0) Hct 41.7 L % (42.0-52.0) MCV 93.3 fl (80-100) MCH 30.4 pg (26-34) MCHC 32.6 g/dl (32-36) RDW 12.6 % (11.5-14.5) Plt Count 212 k/mm3 (150-375) MPV 10.9 H fl (7.4-10.4) Sodium 132 L mmol/L (137-145) Potassium 3.6 mmol/L (3.4-5.0) Chloride 105 mmol/L (98-107) Carbon Dioxide 19 L mmol/L (22-30) Anion Gap 8 mmol/L (8-16) BUN 29 H mg/dL (9-20) Creatinine 1.30 mg/dL (0.7-1.3) Estim Creat Clear Calc 71 ml/min Estimated GFR 56 L (59 - ) Glucose 132 H mg/dL (65-110) Calcium 8.0 L mg/dL (8.4-10.2) Total Bilirubin 1.6 H mg/dL (0.2-1.3) AST 30 U/L (17-59) ALT 26 U/L (6-50) Alkaline Phosphatase 59 U/L (38-126) Total Protein 6.0 L g/dL (6.3-8.2) Albumin 3.3 L g/dL (3.5-5.1) Patient hx anesthesia problems: none Family hx anesthesia problems: none Results Review: All pre-operative results and documents have been reviewed as part of the pre-operative evaluation. [facility] Past Medical History Medical History Back pain Choledocholithiasis with acute cholecystitis Closed right hand fracture Hypertension Surgical History Surgical History History of removal of pigmented skin lesion History of tonsillectomy Family History Family History Father Malignant neoplasm of prostate Mother Family history of primary malignant neoplasm of liver Social History Social History Social History: He lives with his who is the power employee benefits attorney. He has 2 children. He works for [employer]. Code status full code Smoking status: Never smoker Alcohol intake: never Substance use: never Lack of Transportation: No Lack of Food: Never True Current Housing: I Have Housing Concerned About Future Housing: No Difficulty Paying Gas/Electric Bills: No Difficulty Paying for Meds: No Currently Unemployed: No Education: High School Diploma/GED Difficulty w/ Childcare or Family Care: No Spiritual care concerns: No Anes - Eval Final PreProcedure Day of Procedure 01/15/23 15:11 Patient weight: obese Heart: regular rate and rhythm Lungs: clear to auscultation Airway: Mallampati scale class II Neurological: alert and oriented Last oral intake: >/= 8 hours ASA classification: II Emergent: no Anesthetic plan: proceed Anesthesia type and monitoring: general ETT and standard monitoring Results Review: All pre-o
[2023-01-15] MEDS: BUPIVACAINE/EPINEPHRINE 0.25% 50 ML VIAL 30 ML INFILTRATE (15:46)
--- NOTE | 2023-01-15 17:04 | W.PM.PROC2 ---
Procedure Note - Detailed Date of Procedure 01/15/23 Pre-op Diagnosis Acute Cholecystis, Choledocholithiasis Post-op Diagnosis Same Procedure Performed Laparoscopic Cholecystectomy Surgeon Gregory Gordon, DO Anesthesia General and Local (0.5% bupivacaine) Indications This is a 63-year-old man who presented to the emergency department 2 days ago with right upper quadrant pain, fevers, nausea and vomiting. His workup in the emergency department showed signs of sepsis with cholangitis and a common bile duct stone. He underwent ERCP yesterday. His fevers improved with IV antibiotics and ERCP. Discussions were made with the patient about further treatment options for the gallbladder and decision was made to proceed with laparoscopic cholecystectomy, possible open. Findings Laparoscopic cholecystectomy was performed. The patient had evidence of a perforated gallbladder with some bile staining along the omentum that was covering the gallbladder. There is intense inflammatory reaction around the gallbladder making it difficult to visualize. The surgery was very technically difficult with about 250 mL of blood loss which is about 10 times the expected amount for a straightforward laparoscopic cholecystectomy. The surgery also took almost 80 minutes which is about twice as long as the street for laparoscopic cholecystectomy. I had to place an extra port to allow for a laparoscopic retractor to retract the omentum and duodenum posteriorly to better identify the neck of the gallbladder. I carefully took down the omental adhesions around the gallbladder and was able to eventually identify the fundus and body of the gallbladder. There was still some intense inflammatory reaction around the neck of the gallbladder. I eventually was able to identify the cystic duct and created a window around it. The cystic artery was somewhat difficult to identify due to the inflammatory reaction, but I was able to isolated structure that was going directly into the wall the gallbladder and was likely the cystic artery. The wall of the gallbladder was somewhat friable and tore with retraction. Was some spillage small granular black gallstone. I was able to retrieve all of the gallstones that had spilled. There was some bleeding along the liver bed and near where the cystic artery was transected. After removing the gallbladder, there appeared relatively little remaining bleeding. After irrigating the abdomen within the 2 L of sterile saline I then sprayed Surgiflo along the gallbladder fossa. I then chose to place a drain along the gallbladder fossa as well to monitor for any further bleeding or bile leak. Description of Procedure Procedure as well as risks, benefits, and alternatives were discussed with patient. Written consent was obtained and placed in chart prior to procedure. The patient was brought back to surgical suite. Patient was placed in supine position on operating table. Time-out was done to confirm patient and procedure. Patient was then intubated by the anesthesia department. Abdomen was prepped and draped in sterile fashion using chlorhexidine prep. 0.5% bupivacaine with epinephrine was infiltrated at each site of incision. A 5 millimeter incision was made near the umbilicus, and a 5 millimeter Optiview trocar was advanced through the abdominal layers under direct visualization. Once inside the abdominal cavity, carbon dioxide was insufflated to create a pneumoperitoneum. The camera was inserted and the abdomen was inspected. No immediate abnormalities were identified. The patient was placed in reverse Trendelenburg position and rotated slightly to the left. An 11 millimeter incision was made in the subxiphoid region, and an 11 millimeter trocar was inserted under direct visualization. Two 5 millimeter incisions were made in the right upper quadrant, and two 5 millimeter trocars were inserted under direct visualization. Careful blunt dissection was yanet
[2023-01-15] MEDS: fentaNYL CITRATE INJ (*CRX) 100 MCG/2 ML VIAL 25 MCG IV PUSH ×4 (17:21→17:49)
[2023-01-15] MEDS: HYDROcodone/acetaminophen (*CRX) 10-325 MG TABLET 1 TAB PO (18:54)
[2023-01-15] MEDS: CYCLOBENZAPRINE HCL 10 MG TABLET PO (18:55)
[2023-01-15] MEDS: HYDROmorphone HCL INJ (*CRX) 1 MG/ML SYR IV PUSH (20:11)
[2023-01-16] VITALS (8 sets, daily range): BP systolic 113–142; BP diastolic 65–81; PULSE 68–84; RESP 16–22; TEMP 36–37.3; O2SAT 92–93
[2023-01-16] MEDS: PIPERACILLN/TAZ 3.375GM/NS50ML 3.375 GM/50 ML BAG IVPB ×4 (05:21→23:50)
[2023-01-16 06:36] LABS: Hematocrit 37.2 % (42.0-52.0); Hemoglobin 12.5 g/dL (14.0-18.0); Mean Corpuscular HGB Conc 33.6 g/dl (32-36); Mean Corpuscular Hemoglobin 30.9 pg (26-34); Mean Corpuscular Volume 91.9 fl (80-100); Mean Platelet Volume 10.7 fl (7.4-10.4); Platelet Count Result 369 k/mm3 (150-375); Red Blood Count 4.05 M/mm3 (4.6-6.20); White Blood Count 16.1 K/mm3 (4.5-10.0)
[2023-01-16 06:45] LABS: Alanine Aminotransferase 58 U/L (6-50); Albumin Level 3.2 g/dL (3.5-5.1); Alkaline Phosphatase 67 U/L (38-126); Anion Gap 6 mmol/L (8-16); Aspartate Amino Transferase 84 U/L (17-59); Bilirubin,Total 0.9 mg/dL (0.2-1.3); Blood Urea Nitrogen 37 mg/dL (9-20); Calcium 7.8 mg/dL (8.4-10.2); Carbon Dioxide 25 mmol/L (22-30); Chloride 104 mmol/L (98-107); Estimated CRCL calculation 66 ml/min; Estimated Glomerular Filt Rate 47; Glucose 182 mg/dL (65-110); Potassium 3.8 mmol/L (3.4-5.0); Sodium 135 mmol/L (137-145)
[2023-01-16] MEDS: METOPROLOL TARTRATE 50 MG TAB 100 MG PO ×2 (09:14→20:09)
[2023-01-16] MEDS: CYCLOBENZAPRINE HCL 10 MG TABLET PO ×3 (09:14→17:26)
[2023-01-16] MEDS: amLODIPine BESYLATE 5 MG TABLET PO (09:15)
--- NOTE | 2023-01-16 09:43 | PM.PNGS ---
Progress Note: A&P Assessment and Plan (1) Acute cholangitis: Code(s): K83.09 - Other cholangitis Status: Acute Assessment and Plan: Patient doing well on postop day 1. Surgically stable. Will remove MAGDY drain prior to discharge. Patient showing bacteremia from initial blood cultures. Continue broad-spectrum IV antibiotics. (2) Choledocholithiasis with acute cholecystitis: Code(s): K80.42 - Calculus of bile duct with acute cholecystitis without obstruction Status: Acute (3) Sepsis: Code(s): A41.9 - Sepsis, unspecified organism Status: Acute Subjective Subjective Date/Time Seen: 01/16/23 09:43 Interval history: Patient doing well on postop day 1. Tolerating diet. Denies fevers. Pain control. Exam GI: Inspection: incision (Intact with glue) GI Palp: Yes Soft to palpation and Yes Tenderness to palpation present (GI) (Incisional) Objective Data Vital Signs Vital Signs: Vital Signs - 24 hr 01/15/23 10:15 01/15/23 17:03 01/15/23 17:15 Temperature 36.7 C 36.3 C L Pulse Rate 73 81 82 Respiratory Rate 20 17 19 Blood Pressure 120/75 156/86 H 150/88 H Pulse Oximetry 95 97 97 Oxygen Delivery Simple Face Mask Simple Face Mask Oxygen Flow Rate 6 6 Fraction of Inspired Oxygen 01/15/23 17:30 01/15/23 17:45 01/15/23 18:00 Temperature Pulse Rate 82 81 82 Respiratory Rate 15 15 15 Blood Pressure 155/86 H 153/87 H 142/88 H Pulse Oximetry 90 95 93 Oxygen Delivery Nasal Cannula Nasal Cannula Nasal Cannula Oxygen Flow Rate 2 2 2 Fraction of Inspired Oxygen 01/15/23 14:00 01/15/23 18:20 01/15/23 18:35 Temperature 36.9 C 36.3 C L 36.3 C L Pulse Rate 68 84 83 Respiratory Rate 16 20 22 H Blood Pressure 132/72 157/90 H 157/93 H Pulse Oximetry 93 93 94 Oxygen Delivery Oxygen Flow Rate Fraction of Inspired Oxygen 01/15/23 19:00 01/15/23 19:52 01/15/23 20:57 Temperature 36.2 C L 36.6 C Pulse Rate 84 84 84 Respiratory Rate 20 18 Blood Pressure 145/99 H 150/83 H Pulse Oximetry 97 97 Oxygen Delivery Oxygen Flow Rate Fraction of Inspired Oxygen 01/15/23 23:52 01/16/23 03:52 01/16/23 07:52 Temperature 36.4 C 36.6 C 36.0 C L Pulse Rate 74 78 82 Respiratory Rate 18 18 16 Blood Pressure 124/71 142/74 H 113/72 Pulse Oximetry 94 93 92 Oxygen Delivery Oxygen Flow Rate Fraction of Inspired Oxygen 01/16/23 08:27 01/16/23 09:14 Temperature Pulse Rate 83 Respiratory Rate Blood Pressure Pulse Oximetry 92 Oxygen Delivery Room Air Oxygen Flow Rate Fraction of Inspired Oxygen 21 Intake/Output Intake/Output: Intake & Output 01/13/23 01/14/23 01/15/23 01/16/23 23:59 23:59 23:59 23:59 Intake Total 1050 2130 450 450 Output Total 355 130 Balance 1050 1775 320 450 Meds/Results Medications: Active Medications Generic Name Dose Route Start Last Admin Trade Name Freq PRN Reason Stop Dose Admin Acetaminophen 650 mg 01/15/23 18:07 Acetaminophen 325 Mg Tablet PO Q6H PRN Mild Pain (1-3) or Fever Hydrocodone Bitart/Acetaminophen 1 tab 01/15/23 18:07 Hydrocodone/Acetaminophen (*Crx) 5-325 Mg Tablet PO Q4H PRN Pain Rated 4-6 Hydrocodone Bitart/Acetaminophen 1 tab 01/15/23 18:07 01/15/23 18:54 Hydrocodone/Acetaminophen (*Crx) 10-325 Mg Tablet PO 1 tab Q6H PRN Administration Pain Rated 7-10 Amlodipine Besylate 5 mg 01/14/23 09:00 01/16/23 09:15 Amlodipine Besylate 5 Mg Tablet PO 5 mg DAILY YARA Administration Cyclobenzaprine HCl 10 mg 01/14/23 09:00 01/16/23 09:14 Cyclobenzaprine Hcl 10 Mg Tablet PO 10 mg TID YARA Administration Enoxaparin Sodium 40 mg 01/16/23 09:00 Enoxaparin 40 Mg/0.4 Ml Syringe SUB-Q DAILY YARA Hydralazine HCl 10 mg 01/13/23 21:01 Hydralazine Hcl 20 Mg/Ml Vial IV PUSH Q8H PRN Blood Pressure - High Hydromorphone HCl 0.5 mg 01/15/23 18:07 Hydromorphone Hcl Inj (*Crx) 1 Mg/Ml S
--- NOTE | 2023-01-16 10:58 | WPDANESPN ---
Anes - Prog Note Post-Op Date/Time: 01/16/23 10:58 Cardiovascular status: normal Respiratory status: normal Airway patency: baseline Mental status: baseline Post-Op hydration status: normal Vital Signs: Last Vital Signs Temp 96.8 F L 01/16/23 07:52 Pulse 83 01/16/23 09:14 Resp 16 01/16/23 07:52 BP 113/72 01/16/23 07:52 Pulse Ox 92 01/16/23 08:27 O2 Del Method Room Air 01/16/23 09:00 O2 Flow Rate 2 01/15/23 18:00 FiO2 21 01/16/23 08:27 Pain Score (VAS): 5-6 I/O: Intake & Output 01/15/23 01/16/23 01/16/23 23:59 07:59 15:59 Intake Total 350 450 480 Output Total 130 Balance 220 450 480 Laboratory Tests 01/16/23 06:08 01/16/23 06:08 01/16/23 06:08 WBC 16.1 H RBC 4.05 L Hgb 12.5 L Hct 37.2 L MCV 91.9 MCH 30.9 MCHC 33.6 RDW 13.0 Plt Count 369 D MPV 10.7 H Sodium 135 L Potassium 3.8 Chloride 104 Carbon Dioxide 25 Anion Gap 6 L BUN 37 H Creatinine 1.50 H Estim Creat Clear Calc 66 Estimated GFR 47 L Glucose 182 H Calcium 7.8 L Total Bilirubin 0.9 AST 84 H ALT 58 H Alkaline Phosphatase 67 Total Protein 6.0 L Albumin 3.2 L Microbiology 01/13/23 21:53 Blood Blood Culture - Preliminary Klebsiella oxytoca Post-procedural complaints: none Patient Feedback: Patient satisfied with anesthetic care.
[2023-01-16] MEDS: SODIUM CHLORIDE 0.9% IV 1,000 ML 200 ML IVPB ×3 (11:30→23:27)
--- NOTE | 2023-01-16 11:31 | PM.IMPN ---
Progress Note: A&P Assessment and Plan (1) Acute cholangitis: Code(s): K83.09 - Other cholangitis Status: Acute Assessment and Plan: Patient doing well on postop day 1. Surgically stable. Will remove MAGDY drain prior to discharge. Okay to discharge when Hospital feels it is safe from infection standpoint. 01/16: Awaiting blood culture sensitivities, initial set growing Klebsiella oxytoca-- discussed with ID pharmacist and will continue Zosyn pending sensitivities. (2) Choledocholithiasis with acute cholecystitis: Code(s): K80.42 - Calculus of bile duct with acute cholecystitis without obstruction Status: Acute Assessment and Plan: 01/15: Patient status post ERCP with cholecystectomy today 01/16: Pain free, MAGDY drain in place s/p cholecystectomy on 01/15 (3) Sepsis: Code(s): A41.9 - Sepsis, unspecified organism Status: Acute Assessment and Plan: Due to acute cholangitis. Patient on Zosyn. Gram-negative bacilli in anaerobic bottle 1 of 2 cultures. Repeat cultures have been ordered. 01/16: Klebsiella oxytoca growing. Will deescalate when sensitivities return. (4) Hypertension: Code(s): I10 - Essential (primary) hypertension Status: Acute Assessment and Plan: Continue metoprolol and amlodipine. Blood pressure reviewed 01/15 Plan Will continue on Zosyn until sensitivities return DC OK with Surgery when we are OK with bacteremia treatment. Patient aware he will have to stay overnight again tonight. Will plan to DC after sensitivities and appropriate oral antibiotic deescalation. Time Spent With Patient Time with patient: Greater than 35 minutes Subjective Date/time seen: 01/16/23 11:31 Interval history: 01/14: This is a 63-year-old male patient who was admitted to the hospital due to fever, abdominal pain and nausea vomiting. Patient found to have acute cholecystitis and choledocholithiasis. He is noted to be running a fever and chills this morning. Patient is on IV Zosyn and sepsis panel has been drawn with blood cultures in process from the ER. Patient reports that he is supposed to have ERCP today. 01/15: Patient denies fever chills overnight. He states some right upper quadrant pain. He is supposed to go to the operating room for cholecystectomy today. Blood cultures positive for Gram-negative bacilli. Patient on Zosyn. Ordered repeat blood cultures and patient transferred to 3 Med/Surg. 01/16: Patient denies fever or chills. States no nausea and pain is well controlled. Patient reports not passing gas or stools yet post surgery. Initial positive blood culture identified as Klebsiella oxytoca. Will continue on Zosyn until sensitivities return. Will plan to DC after sensitivities. Review of Systems Review of Systems: All systems reviewed & are unremarkable except as noted in HPI and below Exam Narrative: GENERAL: alert and oriented, appears more comfortable HEENT: Pupils are equally round and briskly reactive to light. Extraocular muscles are intact. Oral mucous membranes are moist without lesions. NECK: The patient has no noted JVD. No adenopathy is appreciated. CHEST/LUNGS: Lungs are clear bilaterally without rhonchi, rales, or wheezes. HEART: The patient has a regular rate and regular rhythm. No murmurs, rubs, or gallops are appreciated. Distal pulses are 2+. ABDOMEN: The patient?s abdomen is soft, non tender with clean, dry and intact surgical sites. MAGDY drain in place with minimal bloody drainage. EXTREMITIES: The patient has no peripheral edema. There is no focal long bone tenderness or deformity. SKIN: The patient?s skin is warm and dry, without rashes or lesions. PSYCHIATRIC: The patient has normal mental status and has an appropriate affect. NEUROLOGIC: There are no gross deficits to the cranial nerves. Patient ambulates with steady gait. Objective Data Vital Signs Vital Signs: Vital Signs - 24 hr 01/15/23 17:03 01/15/23 17:15 0
[2023-01-16] MEDS: ACETAMINOPHEN 325 MG TABLET 650 MG PO (17:25)
[2023-01-17] MEDS: PIPERACILLN/TAZ 3.375GM/NS50ML 3.375 GM/50 ML BAG IVPB (05:30)
[2023-01-17 05:40] VITALS: BP 152/95; PULSE 75; RESP 16; TEMP 36.2; O2SAT 93
[2023-01-17 06:18] LABS: Hematocrit 35.2 % (42.0-52.0); Hemoglobin 11.4 g/dL (14.0-18.0); Mean Corpuscular HGB Conc 32.4 g/dl (32-36); Mean Corpuscular Volume 92.6 fl (80-100); Mean Platelet Volume 10.2 fl (7.4-10.4); Platelet Count Result 356 k/mm3 (150-375); Red Cell Distribution Width 12.8 % (11.5-14.5); White Blood Count 13.5 K/mm3 (4.5-10.0)
[2023-01-17 06:30] LABS: Alanine Aminotransferase 66 U/L (6-50); Albumin Level 3.1 g/dL (3.5-5.1); Alkaline Phosphatase 93 U/L (38-126); Anion Gap 4 mmol/L (8-16); Aspartate Amino Transferase 63 U/L (17-59); Bilirubin,Total 0.6 mg/dL (0.2-1.3); Blood Urea Nitrogen 29 mg/dL (9-20); Calcium 7.4 mg/dL (8.4-10.2); Carbon Dioxide 28 mmol/L (22-30); Chloride 107 mmol/L (98-107); Estimated CRCL calculation 76 ml/min; Estimated Glomerular Filt Rate 56; Glucose 94 mg/dL (65-110); Potassium 3.4 mmol/L (3.4-5.0); Sodium 139 mmol/L (137-145)
[2023-01-17] MEDS: amLODIPine BESYLATE 5 MG TABLET PO (08:23)
[2023-01-17] MEDS: METOPROLOL TARTRATE 50 MG TAB 100 MG PO (08:23)
[2023-01-17] MEDS: CYCLOBENZAPRINE HCL 10 MG TABLET PO ×2 (08:23→13:36)
[2023-01-17] MEDS: ENOXAPARIN 40 MG/0.4 ML SYRINGE SUB-Q (08:23)
[2023-01-17] MEDS: SODIUM CHLORIDE 0.9% IV 1,000 ML 200 ML IVPB (08:25)
--- NOTE | 2023-01-17 12:18 | PM.DS ---
DS: Admitting Diagnosis Discharge Date 01/17/2023 Admitting Diagnosis Choledocholithiasis with acute cholecystitis hypertension DS: Discharge Diagnosis Discharge Diagnosis (1) Sepsis: Code(s): A41.9 - Sepsis, unspecified organism Status: Acute Assessment and Plan: Bacteremia with Klebsiella oxytoca due to acute cholangitis. Patient treated with IV Zosyn for 3 days then transition to oral Augmentin t.i.d. for total of 10 days treatment (2) Acute cholangitis: Code(s): K83.09 - Other cholangitis Status: Acute (3) Choledocholithiasis with acute cholecystitis: Code(s): K80.42 - Calculus of bile duct with acute cholecystitis without obstruction Status: Acute Assessment and Plan: ERCP with stones removed from bile duct and subsequent cholecystectomy (4) Hypertension: Code(s): I10 - Essential (primary) hypertension Status: Acute DS: Summary Hospital Course Reason for hospitalization: this is a 63-year-old male patient who was admitted to the hospital for right upper quadrant abdominal pain and imaging findings consistent with choledocholithiasis with acute cholecystitis. Hospital Course: Patient admitted to hospitalist service on IV antibiotics started in the emergency department (Zosyn.) Gastroenterology and General surgery were consulted. Patient underwent ERCP with stone retrieval on 2nd day of admission then the following day went to surgery for laparoscopic cholecystectomy. Patient had some excess bleeding during surgery and a MAGDY drain was placed for monitoring postoperative drainage. On day 3 blood cultures were positive for grand negative bacilli. White blood cell count had been improving and patient been Zosyn. Repeat cultures were drawn as source was controlled and patient had been receiving broad-spectrum antibiotics. This positive blood culture was identified as Klebsiella oxytocia with sensitivities reporting this morning. Patient changed to Augmentin 3 times daily as he was looking and feeling much better. Surgery evaluated patient and removed MAGDY drain and cleared patient for discharge. Status at Discharge Cognitive/behavioral status at discharge: Awake, alert, oriented and pleasant Functional status at discharge: independent ambulation Overall status at discharge: patient is back to baseline Time Spent with Patient Time attestation: Total time spent providing and/or coordinating discharge services: Time spent: Greater than 30 minutes Exam Narrative: GENERAL: alert and oriented, appears much more comfortable HEENT: Pupils are equally round and briskly reactive to light. Extraocular muscles are intact. Oral mucous membranes are moist without lesions. NECK: The patient has no noted JVD. No adenopathy is appreciated. CHEST/LUNGS: Lungs are clear bilaterally without rhonchi, rales, or wheezes. HEART: The patient has a regular rate and regular rhythm. No murmurs, rubs, or gallops are appreciated. Distal pulses are 2+. ABDOMEN: The patient?s abdomen is soft, non tender with clean, dry and intact surgical sites. MAGDY drain in place with minimal bloody drainage. (to be removed by surgery before discharge) EXTREMITIES: The patient has no peripheral edema. There is no focal long bone tenderness or deformity. SKIN: The patient?s skin is warm and dry, without rashes or lesions. PSYCHIATRIC: The patient has normal mental status and has an appropriate affect. NEUROLOGIC: There are no gross deficits to the cranial nerves. Patient ambulates with steady gait. patient has returned back to baseline status DS: Data Data Completed and Pending Completed studies during hospitalization: Pending at discharge 01/15/23 16:30 Surgical [PTH] Routine Labs on day of discharge: Labs from last 24 hours 01/17/23 05:40 WBC 13.5 H RBC 3.80 L Hgb 11.4 L Hct 35.2 L MCV 92.6 MCH 30.0 MCHC 32.4 RDW 12.8 Plt Count 356 MPV 10.2 Sodium 139 Potas
--- NOTE | 2023-01-17 13:08 | PM.PNGS ---
Progress Note: A&P Assessment and Plan (1) Acute cholangitis: Code(s): K83.09 - Other cholangitis Status: Acute Assessment and Plan: tolerating diet. OK to discharge today. F/u in office in 2 weeks. (2) Choledocholithiasis with acute cholecystitis: Code(s): K80.42 - Calculus of bile duct with acute cholecystitis without obstruction Status: Acute Subjective Subjective Date/Time Seen: 01/17/23 13:08 Interval history: Tolerating diet, afebrile. Pain controlled. Exam GI: Inspection: non-distended GI Palp: Yes Soft to palpation, No Tenderness to palpation present (GI) and No Guarding due to palpation present (GI) Other: serosanguinous [place] in drain Objective Data Vital Signs Vital Signs: Vital Signs - 24 hr 01/16/23 15:52 01/16/23 20:09 01/16/23 20:40 Temperature 37.3 C 36.3 C L Pulse Rate 84 68 80 Respiratory Rate 22 H 16 Blood Pressure 137/73 136/65 Pulse Oximetry 92 92 Oxygen Delivery 01/17/23 05:40 01/17/23 08:00 Temperature 36.2 C L Pulse Rate 75 Respiratory Rate 16 Blood Pressure 152/95 H Pulse Oximetry 93 Oxygen Delivery Room Air Intake/Output Intake/Output: Intake & Output 01/14/23 01/15/23 01/16/23 01/17/23 23:59 23:59 23:59 23:59 Intake Total 2130 450 5042 2490 Output Total 355 130 10 47 Balance 2686 223 9448 2443 Meds/Results Medications: Active Medications Generic Name Dose Route Start Last Admin Trade Name Freq PRN Reason Stop Dose Admin Acetaminophen 650 mg 01/15/23 18:07 01/16/23 17:25 Acetaminophen 325 Mg Tablet PO 650 mg Q6H PRN Administration Mild Pain (1-3) or Fever Hydrocodone Bitart/Acetaminophen 1 tab 01/15/23 18:07 Hydrocodone/Acetaminophen (*Crx) 5-325 Mg Tablet PO Q4H PRN Pain Rated 4-6 Hydrocodone Bitart/Acetaminophen 1 tab 01/15/23 18:07 01/15/23 18:54 Hydrocodone/Acetaminophen (*Crx) 10-325 Mg Tablet PO 1 tab Q6H PRN Administration Pain Rated 7-10 Amlodipine Besylate 5 mg 01/14/23 09:00 01/17/23 08:23 Amlodipine Besylate 5 Mg Tablet PO 5 mg DAILY YARA Administration Amoxicillin/Clavulanate Potassium 1 tablet 01/17/23 14:00 Amoxicillin/Clavulanate K 875-125 Mg Tab PO 01/23/23 22:01 Q8HR YARA Cyclobenzaprine HCl 10 mg 01/14/23 09:00 01/17/23 08:23 Cyclobenzaprine Hcl 10 Mg Tablet PO 10 mg TID YARA Administration Enoxaparin Sodium 40 mg 01/16/23 09:00 01/17/23 08:23 Enoxaparin 40 Mg/0.4 Ml Syringe SUB-Q 40 mg DAILY YARA Administration Hydralazine HCl 10 mg 01/13/23 21:01 Hydralazine Hcl 20 Mg/Ml Vial IV PUSH Q8H PRN Blood Pressure - High Hydromorphone HCl 0.5 mg 01/15/23 18:07 Hydromorphone Hcl Inj (*Crx) 1 Mg/Ml Syr IV PUSH Q2H PRN Pain Rated 4-6 Hydromorphone HCl 1 mg 01/15/23 18:07 01/15/23 20:11 Hydromorphone Hcl Inj (*Crx) 1 Mg/Ml Syr IV PUSH 1 mg Q2H PRN Administration Pain Rated 7-10 Sodium Chloride 1,000 mls @ 200 mls/hr 01/16/23 10:45 01/17/23 08:25 Normal Saline Iv IVPB 200 mls/hr .Q5H YARA Administration Metoprolol Tartrate 100 mg 01/14/23 09:00 01/17/23 08:23 Metoprolol Tartrate 50 Mg Tab PO 100 mg Q12HR YARA Administration Ondansetron HCl 4 mg 01/13/23 20:21 Ondansetron Inj 4 Mg/2 Ml Vial IV PUSH Q4H PRN Nausea Radiology Results: ITS Impressions Chest X-Ray 01/13/23 19:41 Impression: Linear right basilar atelectasis or scarring, otherwise clear lungs. Abdomen/Pelvis CT 01/13/23 19:47 Impression: Cholelithiasis. Associated gallbladder wall thickening and pericholecystic inflammatory stranding is highly suspicious for superimposed acute cholecystitis. Choledocholithiasis, with probable small stone at the distal common duct. Stable small left adrenal nodule. Stability since 01/20/2021 is compatible with benignity. Endo Retro Cholangiopancreatogram 01/14/23 15:27 IMPRESSION: Fl
[2023-01-17] MEDS: AMOXICILLIN/CLAVULANATE K 875-125 MG TAB 1 TABLET PO (13:36)
== END 2023-01-17 14:05 | disposition home or self-care (01) | DRG 417 ==
LOC: ANHED 19:32 → ANHIMU 20:54 → ANH3MEDSUR 01-15 09:49
PROVIDERS: Emergency Medicine; Internal Medicine Gastroenterology; Nurse Practitioner; Surgery; Admitting Provider Internal Medicine; Emergency Provider Emergency Medicine; PCP Emergency Medicine; Visit Provider Nurse Practitioner
PROC: 0FC98ZZ Extirpation of Matter from Common Bile Duct, Via Natural or Artificial Opening Endoscopic (ICD-10-PCS; CPT 43260; principal; 2023-01-14 15:30)
PROC: 0FT44ZZ Resection of Gallbladder, Percutaneous Endoscopic Approach (ICD-10-PCS; CPT 47562; principal; 2023-01-15 15:00)
DX: K80.42 Calculus of bile duct with acute cholecystitis without obstruction (principal); A41.9 Sepsis, unspecified organism; B96.1 Klebsiella pneumoniae [K. pneumoniae] as the cause of diseases classified elsewhere; K31.9 Disease of stomach and duodenum, unspecified; K57.10 Diverticulosis of small intestine without perforation or abscess without bleeding; G89.29 Other chronic pain; I10 Essential (primary) hypertension; E80.6 Other disorders of bilirubin metabolism; M54.9 Dorsalgia, unspecified; Z20.822 Contact with and (suspected) exposure to COVID-19
CPT/HCPCS: 36415; 71045; 74177; 74329; 80053; 81001; 83036; 83605; 83615; 83690; 83735; 84443; 85025; 85027; 85610; 85730; 87040; 87077; 87186; 87637; 88304; 93005; 96361; 96365; 96366; 96375; 96376; 99285; A9270; G0378; J0330; J1100; J1170; J1650; J2250; J2270; J2405; J2543; J2704; J2710; J3010; J7030; J7120; Q9967

== ENCOUNTER 2023-01-29 11:05 | Outpatient (CLI) | payer OTHER, SELFPAY ==
[2023-01-29 11:21] LABS: Basophils Absolute Auto 0.1 K/mm3 (0.0-0.1); Basophils Percent Auto 0.8 % (0.2-1.2); Eosinophils Absolute Auto 0.1 K/mm3 (0-0.3); Eosinophils Percent Auto 0.3 % (0-4.4); Hematocrit 35.8 % (42.0-52.0); Hemoglobin 11.6 g/dL (14.0-18.0); Immature Granulocyte Absolute 0.09 K/mm3 (0.00-0.031); Immature Granulocyte Percent A 0.6 % (0-0.5); Lymphocytes Absolute Auto 2.74 K/mm3 (0.9-3.2); Lymphocytes Percent Auto 19.1 % (18.3-44.2); Mean Corpuscular HGB Conc 32.4 g/dl (32-36); Mean Corpuscular Hemoglobin 29.7 pg (26-34); Mean Corpuscular Volume 91.8 fl (80-100); Mean Platelet Volume 9.9 fl (7.4-10.4); Monocytes Absolute Auto 1.1 K/mm3 (0.1-0.6); Monocytes Percent Auto 7.6 % (2.6-8.5); Neutrophils Absolute Auto 10.3 K/mm3 (1.3-6.7); Neutrophils Percent Auto 71.6 % (45.5-73.1); Platelet Count Result 601 k/mm3 (150-375); Red Cell Distribution Width 13.2 % (11.5-14.5); White Blood Count 14.4 K/mm3 (4.5-10.0)
[2023-01-29 11:39] LABS: Alanine Aminotransferase 51 U/L (6-50); Albumin Level 3.8 g/dL (3.5-5.1); Alkaline Phosphatase 236 U/L (38-126); Anion Gap 6 mmol/L (8-16); Aspartate Amino Transferase 44 U/L (17-59); Bilirubin,Total 0.8 mg/dL (0.2-1.3); Blood Urea Nitrogen 20 mg/dL (9-20); Calcium 8.9 mg/dL (8.4-10.2); Carbon Dioxide 31 mmol/L (22-30); Chloride 102 mmol/L (98-107); Estimated Glomerular Filt Rate 56; Glucose 83 mg/dL (65-110); Lipase 550 U/L (23-300); Potassium 3.7 mmol/L (3.4-5.0); Sodium 139 mmol/L (137-145)
== END 2023-01-29 11:06 | disposition home or self-care (01) ==
LOC: ANHLAB 11:07
PROVIDERS: PCP Emergency Medicine; Visit Provider Surgery
DX: K80.42 Calculus of bile duct with acute cholecystitis without obstruction (principal)
CPT/HCPCS: 36415; 80053; 83690; 85025

== ENCOUNTER 2023-01-30 14:15 | Outpatient (CLI) | payer OTHER, SELFPAY ==
--- NOTE | ~2023-01-30 | CT_ITS ---
EXAMINATION: CT abdomen pelvis w con DATE: 01/30/2023 14:50 INDICATION: Calculus of bile duct with acute cholecystitis. TECHNIQUE: Computed tomography (CT) of the abdomen and pelvis was performed with 100 mL Omnipaque 350 intravenous contrast. Automated exposure control and iterative reconstruction technique were employe d. The dose-length product was 1238.86 mGy-cm. COMPARISON: CT abdomen and pelvis 01/13/23, 01/20/21 FINDINGS: The visualized portions of the lung bases demonstrate mild atelectasis. No pleural effusion . There is mild elevation of right hemidiaphragm. Calcified right hilar lymph nodes are consistent wi th old granulomatous disease. The heart size is normal. No pericardial effusion. There is a 4 mm cyst in the liver. Pneumobilia is noted. There is a 10.1 x 7.8 x 8.9 cm collection of rim-enhancing fluid collection with gas in the gallbladder fossa. The spleen, pancreas, and adrenal glands are normal. T here are cysts in the kidneys measuring up to 5.2 cm on the left. There are bilateral inguinal hernia s containing fat. There is fat stranding in the right upper quadrant and at the recent port sites, co nsistent with inflammation. The appendix is normal. There are no dilated loops of bowel. There is mil d periportal lymphadenopathy, likely reactive. There is trace pelvic ascites. There is 5.2 x 2.9 cm e xpansile lytic lesion of left ischium. There is mild lumbar spondylosis. There are bridging endplate osteophytes at multiple levels in the spine, consistent with diffuse idiopathic skeletal hyperostosis (DISH). IMPRESSION: 1. 10.1 x 7.8 x 8.9 cm abscess versus biloma in the gallbladder fossa. 2. 5.2 x 2.9 cm expansile lytic lesion of left ischium, stable from 01/20/2021, which may be benign or malignant. 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 Reviewed, dictated and finalized at location A.
== END 2023-01-30 14:16 | disposition home or self-care (01) ==
PROVIDERS: PCP Emergency Medicine; Visit Provider Surgery
DX: K81.0 Acute cholecystitis (principal)
CPT/HCPCS: 74177; Q9967

== ENCOUNTER 2023-01-30 17:19 | Observation (INO) | payer BC, OTHER, SELFPAY ==
--- NOTE | ~2023-01-30 | CT_ITS ---
EXAMINATION: CT guide absc cath placement DATE: 01/31/2023 11:23 INDICATION: Intra-abdominal abscess. TECHNIQUE: The procedure including the risks, benefits, and alternatives was discussed with the patie nt. Risks discussed included bleeding and infection. The patient understood the risks and benefits an d agreed to proceed. The skin overlying the abdomen was prepped and draped in usual sterile fashion. Anesthetic was administered with 1% lidocaine subcutaneously. An 18 gauge trochar needle was insert ed into the gallbladder fossa abscess with CT guidance. The needle was exchanged over a wire for 6 Fr ench, 8 Norwegian, 10 Norwegian, and 12 Norwegian dilators and then for a 12 Norwegian pigtail catheter. The cath eter was stitched to the skin, and a sterile dressing was applied. The mA was adjusted according to p atient size. Iterative reconstruction technique was employed. The dose-length product was 396.68 mGy- cm. There were no immediate complications. FINDINGS: CT images demonstrate the catheter within the gallbladder fossa abscess. 10 mL fluid was as pirated for testing. IMPRESSION: 1. Successful CT-guided gallbladder fossa abscess drainage. 2. 10 mL dark red fluid was sent for aerobic and anaerobic cultures. Reviewed, dictated and finalized at location A.
[2023-01-30 17:46] VITALS: BMI 29.5
--- NOTE | 2023-01-30 17:46 | ADMGEN ---
This patient, Erlinda Boles, was admitted to [facility] Surg Room 329-01. Patient/family oriented to hospital policies and general routines including ID bracelet, bed and alarms, visiting hours, pain management, procedures, bathroom and other care routines, personal items, smoking policy, room service/diet, and visiting hours. Information on how to activate the Rapid Response Team has been discussed. Patient/Family are encouraged to report perceived risks to care and to ask questions if they do not understand what they are told or what they should do.
--- NOTE | 2023-01-30 17:52 | PM.IMHP ---
H&P: HPI History of Present Illness Date/Time: 01/30/23 17:52 Chief Complaint: Fevers, poor appetite Narrative: This is a 63-year-old man who is being directly admitted for recurrent infection after recent hospitalization for cholangitis. He had presented to the hospital on 01/13/2023 with upper abdominal pain and fevers. He was found to have evidence of cholangitis and choledocholithiasis. He underwent ERCP by Dr. Maria on 01/14/2023, and then underwent laparoscopic cholecystectomy by me on 01/15/2023. A MAGDY drain was placed at the time of surgery but this had fairly minimal output after a couple days and was removed on 01/17/2023 prior to discharge. He was discharged on Augmentin and Flagyl, but began experiencing recurrent fevers shortly after completing the antibiotics at home. He called the office yesterday with persistent fevers and was sent for a CBC and CMP. He was then sent for a CT abdomen and pelvis today. He was found to have an elevated white blood count and elevated alk-phos. His CT showed a 10.1 x 7.8 x 8.9 cm abscess in the gallbladder fossa. The results were discussed with patient over the phone and he was recommended to come back to the hospital for further treatment. The patient states he is not having a lot of abdominal pain and has not had any fevers today. He has not had much appetite since being discharged from the hospital. He was on Augmentin and Flagyl for 10 days after being discharged. Review of Systems Review of Systems: All systems reviewed & are unremarkable except as noted in HPI and below Eyes: Eyes: Denies change in vision ENT: Denies hearing loss, Denies neck pain and Denies sore throat Cardiovascular: Cardiovascular: Denies chest pain and Denies dyspnea Respiratory: Respiratory: Denies cough, Denies dyspnea and Denies wheezing Gastrointestinal: Gastrointestinal: Reports as per HPI Genitourinary: Genitourinary: Denies hematuria and Denies dysuria Musculoskeletal: Musculoskeletal: Denies arthralgias, Denies joint swelling and Denies neck pain Allergic/Immunologic: Allergic/Immunologic: Denies wheezing PMF Past Medical History Medical History Back pain Choledocholithiasis with acute cholecystitis Closed right hand fracture Hypertension Surgical History Surgical History History of removal of pigmented skin lesion History of tonsillectomy Family History Family History Father Malignant neoplasm of prostate Mother Family history of primary malignant neoplasm of liver Social History Social History Social History: He lives with his who is the power clinical social worker. He has 2 children. He works for [employer]. Code status full code Smoking status: Never smoker Alcohol intake: never Substance use: never Lack of Transportation: No Lack of Food: Never True Current Housing: I Have Housing Concerned About Future Housing: No Difficulty Paying Gas/Electric Bills: No Difficulty Paying for Meds: No Currently Unemployed: No Education: High School Diploma/GED Difficulty w/ Childcare or Family Care: No Spiritual care concerns: No Meds Home Medications and Allergies Home Medications Medication Instructions Recorded Confirmed Type amlodipine 5 mg tablet 5 mg PO DAILY 01/13/23 01/13/23 History cyclobenzaprine 10 mg tablet 10 mg PO TID 01/13/23 01/13/23 History metoprolol tartrate 100 mg tablet 100 mg PO BID 01/13/23 01/13/23 History hydrocodone 5 mg-acetaminophen 325 1 tablet PO Q4H PRN Severe Pain 01/17/23 Rx mg tablet #20 tabs amoxicillin 875 mg-potassium 1 tablet PO Q12H #20 tabs 01/30/23 Rx clavulanate 125 mg tablet metronidazole 500 mg tablet 500 mg PO Q8H #30 tabs 01/30/23 Rx Allergies Allergy/
[2023-01-30 18:19] VITALS: BP 133/71; PULSE 103; RESP 24; TEMP 36.7; O2SAT 94
[2023-01-30] MEDS: PIPERACILLN/TAZ 3.375GM/NS50ML 3.375 GM/50 ML BAG IVPB ×2 (18:33→23:38)
[2023-01-30] MEDS: SODIUM CHLORIDE 0.9% IV 1,000 ML 100 ML IV CONT (18:33)
--- NOTE | 2023-01-30 19:06 | PM.IMCN ---
Assessment and Plan Assessment and plan (1) Postoperative intra-abdominal abscess: Code(s): T81.43XA - Infection following a procedure, organ and space surgical site, initial encounter Status: Acute Assessment and Plan: The patient is currently on Zosyn. Continue with analgesics per surgery. Monitor lipase is it is in the 500s now. Tylenol for fever or pain. A CT-guided catheter placement has been ordered for intra-abdominal abscess. The patient is now nonprofit [email or web address].. Continue with IV fluids. Blood cultures have been obtained.He is afebrile at this time. (2) Hypertension: Qualifiers: Hypertension type: primary hypertension Qualified Code(s): I10 - Essential (primary) hypertension Code(s): I10 - Essential (primary) hypertension Status: Acute Assessment and Plan: Patient's blood pressure is 133/71 and heart rate of 103. P.r.n. hydralazine. Patient is NPO at this time. May also consider routine Lopressor IV if necessary. Plan I thank you for allowing the hospitalist group to consult on this patient. If you should have any questions or concerns about the patient please feel free to [facility] the patient for that day. Thank you HPI Data of Consult Consult date: 01/30/23 Requesting Physician: Gregory Gordon DO Primary Care Provider: Gregory Gordon DO Consult Narrative Narrative: Erlinda Boles is a 63 year old male who I had admitted back on 01/13/2023 and was discovered to have cholelithiasis associated with gallbladder wall thickening and pericholecystic inflammatory stranding though suspicious for superimposed acute cholecystitis. Choledocholithiasis with probable small stone at the distal common duct. The patient underwent an ERCP during that visit. The patient then underwent a laparoscopic cholecystectomy per Dr. Mavis daniels on 01/15/2023 the patient was found to have a perforated gallbladder with some bile stranding along the omentum that was covering the gallbladder. The patient had been on broad-spectrum antibiotics. The patient was then discharged to home on 01/17/2023. The patient stated that he continued to run fevers up to 102. The patient had abdominal pelvis CT which was read as the following today1. 10.1 x 7.8 x 8.9 cm abscess versus biloma in the gallbladder fossa. 2. 5.2 x 2.9 cm expansile lytic lesion of left ischium, stable from 01/20/2021, which may be benign or malignant. 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 H&H 11.6 and 35.8. White count 14.4. The patient had been on Augmentin and Flagyl for 10 days after being discharged his last admission. The patient was a direct admit per surgical group. The hospitalist group was asked to consult on the patient. The date of consultation is 01/30/2023 Review of Systems Review of Systems: All systems reviewed & are unremarkable except as noted in HPI and below Constitutional: Constitutional: Reports as per HPI and Reports no additional constitutional complaints Eyes: Eyes: Reports as per HPI and Reports no additional eye complaints ENT: Reports system reviewed and no additional complaints, except as documented and Reports Normal hearing present Cardiovascular: Cardiovascular: Reports no additional cardiovascular complaints Respiratory: Respiratory: Reports no additional respiratory complaints and Reports no additional respiratory complaints Gastrointestinal: Gastrointestinal: Reports as per HPI and Reports no additional gastrointestinal complaints Musculoskeletal: Musculoskeletal: Reports no additional musculoskeletal complaints Integumentary/Breasts: Skin/Breast: Reports system reviewed and no additional complaints, except as docu and Reports as per HPI Neurologic: Reports system reviewed and no additional complaints, except as documented, Reports as per HPI and Reports Normal hearing present Psychiatric: Psychiatric: Reports no additional psychi
[2023-01-30 22:00] VITALS: BP 136/74; PULSE 106; RESP 20; TEMP 36.9; O2SAT 93
[2023-01-31] MEDS: PIPERACILLN/TAZ 3.375GM/NS50ML 3.375 GM/50 ML BAG IVPB ×4 (05:26→23:55)
[2023-01-31] MEDS: SODIUM CHLORIDE 0.9% IV 1,000 ML 100 ML IV CONT (05:31)
[2023-01-31 06:00] VITALS: BP 131/86; PULSE 100; RESP 20; TEMP 36.6; O2SAT 94
[2023-01-31 06:29] LABS: Basophils Absolute Auto 0.1 K/mm3 (0.0-0.1); Basophils Percent Auto 1.3 % (0.2-1.2); Eosinophils Absolute Auto 0.1 K/mm3 (0-0.3); Eosinophils Percent Auto 0.9 % (0-4.4); Hematocrit 32.3 % (42.0-52.0); Hemoglobin 10.3 g/dL (14.0-18.0); Immature Granulocyte Absolute 0.08 K/mm3 (0.00-0.031); Immature Granulocyte Percent A 0.7 % (0-0.5); Lymphocytes Absolute Auto 2.25 K/mm3 (0.9-3.2); Lymphocytes Percent Auto 20.6 % (18.3-44.2); Mean Corpuscular HGB Conc 31.9 g/dl (32-36); Mean Corpuscular Hemoglobin 29.4 pg (26-34); Mean Corpuscular Volume 92.3 fl (80-100); Mean Platelet Volume 9.5 fl (7.4-10.4); Monocytes Absolute Auto 0.5 K/mm3 (0.1-0.6); Monocytes Percent Auto 4.7 % (2.6-8.5); Neutrophils Absolute Auto 7.9 K/mm3 (1.3-6.7); Neutrophils Percent Auto 71.8 % (45.5-73.1); Platelet Count Result 455 k/mm3 (150-375); White Blood Count 10.9 K/mm3 (4.5-10.0)
[2023-01-31 06:39] LABS: INR 1.2; Prothrombin Time 15.7 Seconds (11.1-14.7)
[2023-01-31 06:43] LABS: Alanine Aminotransferase 57 U/L (6-50); Albumin Level 3.1 g/dL (3.5-5.1); Alkaline Phosphatase 242 U/L (38-126); Anion Gap 4 mmol/L (8-16); Aspartate Amino Transferase 50 U/L (17-59); Bilirubin,Total 0.7 mg/dL (0.2-1.3); Blood Urea Nitrogen 13 mg/dL (9-20); Calcium 7.9 mg/dL (8.4-10.2); Carbon Dioxide 26 mmol/L (22-30); Chloride 104 mmol/L (98-107); Estimated CRCL calculation 64 ml/min; Estimated Glomerular Filt Rate 56; Glucose 100 mg/dL (65-110); Lipase 391 U/L (23-300); Potassium 3.6 mmol/L (3.4-5.0); Sodium 134 mmol/L (137-145)
[2023-01-31 06:44] LABS: Partial Thromboplastin Time 34.1 SECONDS (22.3-36.8)
[2023-01-31 07:06] LABS: Anisocytosis 2+ (NORMAL); Hypochromasia 2+ (NORMAL); Schistocytes None Seen (NORMAL)
[2023-01-31 07:07] LABS: Platelet Estimate Increased (Adequate)
--- NOTE | 2023-01-31 11:46 | PM.IMPN ---
Progress Note: A&P Assessment and Plan (1) Postoperative intra-abdominal abscess: Code(s): T81.43XA - Infection following a procedure, organ and space surgical site, initial encounter Status: Acute Assessment and Plan: Continue Zosyn for intra-abdominal abscess, monitor lipase Follow-up blood cultures (2) Hypertension: Qualifiers: Hypertension type: primary hypertension Qualified Code(s): I10 - Essential (primary) hypertension Code(s): I10 - Essential (primary) hypertension Status: Acute Assessment and Plan: P.r.n. hydralazine. May also consider routine Lopressor IV if necessary. Blood pressures reviewed 01/31 Plan DVT prophylaxis with SCDs GI prophylaxis not indicated Code status full code Subjective Date/time seen: 01/31/23 11:46 Interval history: No overnight events noted. No chest pain or shortness of breath. No nausea, vomiting or diarrhea. No fevers or chills. Review of Systems Review of Systems: 12 point review of systems was assessed and was negative except as noted in the HPI Exam Narrative: General: No acute distress, alert and oriented per baseline HEENT: Atraumatic, normocephalic, mucous membranes moist CV: Regular rate and rhythm, S1, S2 Lungs: Clear to auscultation bilaterally, no rales or crackles noted, no wheezes, good air entry Abdomen: Soft, nontender, nondistended Extremities: Normal to inspection Skin: No rashes noted, no lesions or wounds seen Psych: Euthymic, normal affect Objective Data Vital Signs Vital Signs: Vital Signs - 24 hr 01/30/23 17:45 01/30/23 18:19 01/30/23 20:00 Temperature 98.0 F Pulse Rate 103 H Respiratory Rate 24 H Blood Pressure 133/71 Pulse Oximetry 94 Oxygen Delivery Room Air Room Air 01/30/23 22:00 01/31/23 06:00 Temperature 98.4 F 97.9 F Pulse Rate 106 H 100 Respiratory Rate 20 20 Blood Pressure 136/74 131/86 Pulse Oximetry 93 94 Oxygen Delivery Intake/Output Intake/Output: Intake & Output 01/28/23 01/29/23 01/30/23 01/31/23 23:59 23:59 23:59 23:59 Intake Total 50 1100 Output Total 625 Balance 50 475 Meds/Results Medications: Active Medications Generic Name Dose Route Start Last Admin Trade Name Freq PRN Reason Stop Dose Admin Acetaminophen 650 mg 01/30/23 17:28 Acetaminophen 325 Mg Tablet PO Q4H PRN Mild Pain (1-3) or Fever Hydrocodone Bitart/Acetaminophen 1 tab 01/30/23 17:28 Hydrocodone/Acetaminophen (*Crx) 5-325 Mg Tablet PO Q4H PRN Moderate Pain (4-6) Hydralazine HCl 10 mg 01/30/23 23:09 Hydralazine Hcl 20 Mg/Ml Vial IV PUSH Q8H PRN Blood Pressure - High Piperacillin/Tazobactam/Dextrose 3.375 gm in 50 mls @ 100 mls/hr 01/30/23 18:00 01/31/23 05:56 Zosyn 3.375 Gm/Ns 50 Ml IVPB Infused Q6H YARA Infusion Morphine Sulfate 4 mg 01/30/23 17:28 Morphine Sulfate (*Crx) 2 Mg/Ml Inj IV PUSH Q2H PRN Pain Rated 7-10 Ondansetron HCl 4 mg 01/30/23 17:28 Ondansetron Inj 4 Mg/2 Ml Vial IV PUSH Q6H PRN Nausea And Vomiting Radiology Results: ITS Impressions Catheter Placement CT 01/31/23 11:23 IMPRESSION: 1. Successful CT-guided gallbladder fossa abscess drainage. 2. 10 mL dark red fluid was sent for aerobic and anaerobic cultures. Labs Labs: Laboratory Results - last 24 hr 01/31/23 06:13 WBC 10.9 H RBC 3.50 L Hgb 10.3 L Hct 32.3 L MCV 92.3 MCH 29.4 MCHC 31.9 L RDW 13.0 Plt Count 455 H MPV 9.5 Immature Gran % (Auto) 0.7 H Neut % (Auto) 71.8 Lymph % (Auto) 20.6 Nolan % (Auto) 4.7 Eos % (Auto) 0.9 Baso % (Auto) 1.3 H Lymph # (Auto) 2.25 Nolan # (Auto) 0.5 Eos # (Auto) 0.1 Baso # (Auto) 0.1 Abs Immat Gran (auto) 0.08 H Absolute Neuts (auto) 7.9 H Absolute Nucleated RBC 0.0 Nucleated RBC % 0.0 Platelet Estimate Increased Hypochromasia 2+ Anisocytosis 2+ Schistocytes None seen
--- NOTE | 2023-01-31 12:00 | PM.PNGS ---
Progress Note: A&P Assessment and Plan (1) Postoperative intra-abdominal abscess: Code(s): T81.43XA - Infection following a procedure, organ and space surgical site, initial encounter Status: Acute Assessment and Plan: Continue Zosyn, await blood and abscess culture results Resume low fat diet Repeat labs in AM (2) Hypertension: Qualifiers: Hypertension type: primary hypertension Qualified Code(s): I10 - Essential (primary) hypertension Code(s): I10 - Essential (primary) hypertension Status: Acute Subjective Subjective Date/Time Seen: 01/31/23 12:00 Interval history: Showing signs of improvement today. No fevers. No pain. Exam GI: Inspection: non-distended, incision (intact with glue) and other (Pigtail drain with bloody output) GI Palp: Yes Soft to palpation, No Tenderness to palpation present (GI) and No Guarding due to palpation present (GI) Auscultation: normal bowel sounds Objective Data Vital Signs Vital Signs: Vital Signs - 24 hr 01/30/23 17:45 01/30/23 18:19 01/30/23 20:00 Temperature 36.7 C Pulse Rate 103 H Respiratory Rate 24 H Blood Pressure 133/71 Pulse Oximetry 94 Oxygen Delivery Room Air Room Air 01/30/23 22:00 01/31/23 06:00 Temperature 36.9 C 36.6 C Pulse Rate 106 H 100 Respiratory Rate 20 20 Blood Pressure 136/74 131/86 Pulse Oximetry 93 94 Oxygen Delivery Intake/Output Intake/Output: Intake & Output 01/28/23 01/29/23 01/30/23 01/31/23 23:59 23:59 23:59 23:59 Intake Total 50 1100 Output Total 625 Balance 50 475 Meds/Results Medications: Active Medications Generic Name Dose Route Start Last Admin Trade Name Freq PRN Reason Stop Dose Admin Acetaminophen 650 mg 01/30/23 17:28 Acetaminophen 325 Mg Tablet PO Q4H PRN Mild Pain (1-3) or Fever Hydrocodone Bitart/Acetaminophen 1 tab 01/30/23 17:28 Hydrocodone/Acetaminophen (*Crx) 5-325 Mg Tablet PO Q4H PRN Moderate Pain (4-6) Hydralazine HCl 10 mg 01/30/23 23:09 Hydralazine Hcl 20 Mg/Ml Vial IV PUSH Q8H PRN Blood Pressure - High Piperacillin/Tazobactam/Dextrose 3.375 gm in 50 mls @ 100 mls/hr 01/30/23 18:00 01/31/23 05:56 Zosyn 3.375 Gm/Ns 50 Ml IVPB Infused Q6H YARA Infusion Morphine Sulfate 4 mg 01/30/23 17:28 Morphine Sulfate (*Crx) 2 Mg/Ml Inj IV PUSH Q2H PRN Pain Rated 7-10 Ondansetron HCl 4 mg 01/30/23 17:28 Ondansetron Inj 4 Mg/2 Ml Vial IV PUSH Q6H PRN Nausea And Vomiting Radiology Results: ITS Impressions Catheter Placement CT 01/31/23 11:23 IMPRESSION: 1. Successful CT-guided gallbladder fossa abscess drainage. 2. 10 mL dark red fluid was sent for aerobic and anaerobic cultures. Labs Labs: Laboratory Results - last 24 hr 01/31/23 06:13 WBC 10.9 H RBC 3.50 L Hgb 10.3 L Hct 32.3 L MCV 92.3 MCH 29.4 MCHC 31.9 L RDW 13.0 Plt Count 455 H MPV 9.5 Immature Gran % (Auto) 0.7 H Neut % (Auto) 71.8 Lymph % (Auto) 20.6 Overton % (Auto) 4.7 Eos % (Auto) 0.9 Baso % (Auto) 1.3 H Lymph # (Auto) 2.25 [place] # (Auto) 0.5 Eos # (Auto) 0.1 Baso # (Auto) 0.1 Abs Immat Gran (auto) 0.08 H Absolute Neuts (auto) 7.9 H Absolute Nucleated RBC 0.0 Nucleated RBC % 0.0 Platelet Estimate Increased Hypochromasia 2+ Anisocytosis 2+ Schistocytes None seen PT 15.7 H INR 1.2 APTT 34.1 Sodium 134 L Potassium 3.6 Chloride 104 Carbon Dioxide 26 Anion Gap 4 L BUN 13 D Creatinine 1.30 Estim Creat Clear Calc 64 Estimated GFR 56 L Glucose 100 Calcium 7.9 L Total Bilirubin 0.7 AST 50 ALT 57 H Alkaline Phosphatase 242 H Total Protein 7.0 Albumin 3.1 L Lipase 391 H
[2023-01-31 13:53] VITALS: BP 160/87; PULSE 92; RESP 22; TEMP 36.3; O2SAT 96
[2023-01-31] MEDS: HYDROcodone/acetaminophen (*CRX) 5-325 MG TABLET 1 TAB PO ×2 (16:24→21:13)
[2023-01-31 22:00] VITALS: BP 149/96; PULSE 85; RESP 18; TEMP 36.5; O2SAT 95
[2023-02-01] MEDS: PIPERACILLN/TAZ 3.375GM/NS50ML 3.375 GM/50 ML BAG IVPB ×2 (05:12→11:39)
[2023-02-01 06:00] VITALS: BP 151/86; PULSE 89; RESP 18; TEMP 36.3; O2SAT 96
[2023-02-01 06:13] LABS: Hematocrit 35.3 % (42.0-52.0); Hemoglobin 11.4 g/dL (14.0-18.0); Mean Corpuscular HGB Conc 32.3 g/dl (32-36); Mean Corpuscular Hemoglobin 29.4 pg (26-34); Mean Platelet Volume 9.6 fl (7.4-10.4); Platelet Count Result 542 k/mm3 (150-375); Red Blood Count 3.88 M/mm3 (4.6-6.20); Red Cell Distribution Width 12.9 % (11.5-14.5); White Blood Count 11.4 K/mm3 (4.5-10.0)
[2023-02-01 06:25] LABS: Alanine Aminotransferase 49 U/L (6-50); Albumin Level 3.5 g/dL (3.5-5.1); Alkaline Phosphatase 261 U/L (38-126); Anion Gap 4 mmol/L (8-16); Aspartate Amino Transferase 35 U/L (17-59); Bilirubin,Total 0.7 mg/dL (0.2-1.3); Blood Urea Nitrogen 11 mg/dL (9-20); Calcium 8.5 mg/dL (8.4-10.2); Carbon Dioxide 28 mmol/L (22-30); Chloride 103 mmol/L (98-107); Estimated CRCL calculation 69 ml/min; Estimated Glomerular Filt Rate > 60; Glucose 101 mg/dL (65-110); Potassium 3.7 mmol/L (3.4-5.0); Sodium 135 mmol/L (137-145)
--- NOTE | 2023-02-01 11:54 | PM.DS ---
DS: Admitting Diagnosis Discharge Date 02/01/2023 Admitting Diagnosis Intra-abdominal abscess DS: Discharge Diagnosis Discharge Diagnosis (1) Postoperative intra-abdominal abscess: Code(s): T81.43XA - Infection following a procedure, organ and space surgical site, initial encounter Status: Acute DS: Summary Hospital Course Reason for hospitalization: Intra-abdominal abscess, abnormal finding on recent CT Hospital Course: This is a 63-year-old man who is status post laparoscopic cholecystectomy on 01/15/2023 for acute cholecystitis and acute cholangitis. He was discharged home on antibiotics on 01/17/2023. He had finished the antibiotics but shortly after began experiencing fevers and poor overall appetite. A repeat CT was done as an outpatient on 01/30/2023. This showed evidence of a large abscess within the gallbladder fossa. He was then placed in observation on 01/30 for further treatment of this. Repeat blood cultures were obtained and he was started on IV Zosyn. Hospitalist was consulted for medical management with recent history of bacteremia during last hospitalization. On 01/31/[address]-guided drainage of the abscess was performed. The abscess appeared to be mostly bloody fluid but cultures were obtained. Cultures are still pending at the time of discharge. His blood cultures from 01/30/2023 are negative so far. The patient did well after drainage of the abscess. His pain was well controlled and he remained afebrile during the entirety of his hospital stay. He was then discharged on 02/01/2023. Status at Discharge Functional status at discharge: independent ambulation Overall status at discharge: patient is progressing back to baseline Time Spent with Patient Time attestation: Total time spent providing and/or coordinating discharge services: Time spent: Less than 30 minutes Exam Const: General: comfortable and no acute distress Resp: Effort & Inspection: normal respiratory effort Auscultation: clear to auscultation bilaterally Cardio: Rate: regular rate Rhythm: regular rhythm Heart sounds: S1 normal heart sound present and S2 normal heart sound present GI: Inspection: normal to inspection, non-distended and other (Right upper quadrant pigtail drain with mostly bloody output) GI Palp: Yes Soft to palpation, No Tenderness to palpation present (GI) and No Guarding due to palpation present (GI) DS: Data Data Completed and Pending Labs on day of discharge: Labs from last 24 hours 02/01/23 05:30 WBC 11.4 H RBC 3.88 L Hgb 11.4 L Hct 35.3 L MCV 91.0 MCH 29.4 MCHC 32.3 RDW 12.9 Plt Count 542 H MPV 9.6 Sodium 135 L Potassium 3.7 Chloride 103 Carbon Dioxide 28 Anion Gap 4 L BUN 11 Creatinine 1.20 Estim Creat Clear Calc 69 Estimated GFR > 60 Glucose 101 Calcium 8.5 Total Bilirubin 0.7 AST 35 ALT 49 Alkaline Phosphatase 261 H Total Protein 8.0 Albumin 3.5 Preliminary micro results at discharge 01/30/23 18:14 Blood Culture - Preliminary Blood 01/30/23 18:21 Blood Culture - Preliminary Blood Imaging Radiologist's impression: ITS Impressions Catheter Placement CT 01/31/23 11:23 IMPRESSION: 1. Successful CT-guided gallbladder fossa abscess drainage. 2. 10 mL dark red fluid was sent for aerobic and anaerobic cultures. Discharge Plan Discharge Attending physician on discharge: Gregory Gordon Consulting providers: Danny Owens Discharging Clinician: Gregory Gordon Patient Disposition: Home, Self-Care Activity: other - see discharge instructions Diet: regular Wound Care Instructions: other - see discharge instructions Discharge Instructions: Drain care instructions Empty and record drain output 1-2 times daily Okay to sponge bathe, but no showering or soaking underwater until after drain is removed Call office for increasing redness, swelling, or other problems around drain Follow-up in [facility]
== END 2023-02-01 13:25 | disposition home or self-care (01) ==
PROVIDERS: Admitting Provider Surgery; PCP Surgery; Visit Provider Surgery
DX: T81.43XA Infection following a procedure, organ and space surgical site, initial encounter (principal); I10 Essential (primary) hypertension; R63.0 Anorexia; Z68.29 Body mass index [BMI] 29.0-29.9, adult; Z79.891 Long term (current) use of opiate analgesic; Z79.899 Other long term (current) drug therapy
CPT/HCPCS: 36415; 74177; 75989; 80053; 83690; 85025; 85027; 85610; 85730; 87040; 87070; 87075; 87077; 87186; 87205; 96361; 96365; A9270; C1729; C1769; G0378; G0379; J2543; J7030; Q9967

== ENCOUNTER 2023-02-10 09:27 | Inpatient (IN) | payer BC, OTHER, SELFPAY ==
[2023-02-10] VITALS (38 sets, daily range): BP systolic 134–163; BP diastolic 83–90; PULSE 105–116; RESP 14–30; TEMP 36.8–38.4; O2SAT 93–99; BMI 29.5
--- NOTE | ~2023-02-10 | NM_ITS ---
EXAMINATION: NM hepatobiliary wo pharm DATE: 02/13/2023 12:57 INDICATION: Current perihepatic abscess post cholecystectomy. COMPARISON: CT dated 02/10/2023 and 02/12/2023 TECHNIQUE: 5.097 mCi Tc-99m mebrofenin (Choletec) was administered intravenously. Scintigraphic imag es of the abdomen were obtained for one hour. FINDINGS: There is normal clearance of radiotracer from the blood pool. There is homogeneous tracer u ptake by the liver. There appears to be persistent mass effect upon the caudal margin of the liver li emma corresponding to the draining postoperative fluid collection which could represent abscess or mo re likely hematoma. Activity progresses to the bowel with small bowel activity first appreciated at 1 5 minutes with progressing increases in the amount of activity on the subsequent 45 minutes. No evide nt extravasation of activity to suggest bile leak. There is some reflux of activity into the stomach. IMPRESSION: 1. No bile leak. Reviewed, dictated and finalized at location A. IMPRESSION: 1. No bile leak.
--- NOTE | ~2023-02-10 | XR_ITS ---
EXAMINATION: XR chest 1V portable INDICATION: Fever and weakness TECHNIQUE: Portable AP chest at 1023 hours COMPARISON: 01/13/2023 FINDINGS: The lung volumes are low. The lungs are free of acute opacities. The cardiomediastinal silh ouette is normal. IMPRESSION: 1. No acute cardiopulmonary abnormality. Reviewed, dictated and finalized at location A.
--- NOTE | ~2023-02-10 | CT_ITS ---
EXAMINATION: CT abdomen pelvis w con INDICATION: Fever, right upper quadrant pain TECHNIQUE: Computed tomographic images of the abdomen and pelvis were obtained after the administrati on of 100 cc of Omnipaque 350 intravenous contrast. The dose-length product (DLP) was 1298.15 mGy-cm. Automated exposure control and iterative reconstruction technique were employed. COMPARISON: 01/30/2023, 01/31/2023 FINDINGS: Minimal dependent atelectasis is present in the lung bases. The heart size is normal. There is a 10.5 x 8.5 cm abscess of the gallbladder fossa without significant change since the comparison CT. The percutaneous drain has been removed. There is an approximately 2.5 x 1.8 cm abscess anterior to the gastric antrum. Pneumobilia is noted. The liver, spleen, pancreas, and adrenal glands are norm al. Cysts of the kidneys measure up to 5.2 cm on the left. No pathologically enlarged abdominal or pe lvic lymph nodes are identified. There are no dilated loops of bowel. The appendix is normal. There a re bilateral inguinal hernias containing fat. An expansile, lytic lesion of the left ischium is again noted and unchanged. There are bridging osteophytes at multiple levels in the spine, consistent with diffuse idiopathic skeletal hyperostosis (DISH). IMPRESSION: 1. Gallbladder fossa abscess without significant change. Percutaneous drain has been removed. Reviewed, dictated and finalized at location A.
--- NOTE | ~2023-02-10 | CT_ITS ---
EXAMINATION: CT guide absc cath placement DATE: 02/12/2023 14:25 INDICATION: Right upper quadrant abdominal abscess. TECHNIQUE: The procedure including the risks, benefits, and alternatives was discussed with the patie nt. Risks discussed included bleeding and infection. The patient understood the risks and benefits an d agreed to proceed. The skin overlying the abdomen was prepped and draped in usual sterile fashion. Anesthetic was administered with 1% lidocaine subcutaneously. An 18 gauge trochar needle was inserte d into the right upper quadrant abdominal abscess with CT guidance. The needle was exchanged over a w gaston for 6 Faroese, 8 Faroese, 10 Faroese, and 12 Faroese dilators and then for a 12 Faroese pigtail cathet er. The catheter was stitched to the skin, and a sterile dressing was applied. The mA was adjusted ac cording to patient size. Iterative reconstruction technique was employed. The dose-length product was 184.31 mGy-cm. There were no immediate complications. FINDINGS: CT images demonstrate the catheter within the right upper quadrant abdominal abscess. 10 mL fluid was aspirated for testing. IMPRESSION: 1. Successful CT-guided right upper quadrant abscess drainage. 2. 10 mL opaque, red fluid was sent for aerobic and anaerobic cultures. Reviewed, dictated and finalized at location A.
--- NOTE | 2023-02-10 09:36 | ECG_ITS ---
Measurements Intervals [place] Rate: 114 P: 42 MT: 172 QRS: -13 QRSD: 111 T: 10 QT: 332 QTc: 459 Interpretive Statements SINUS TACHYCARDIA INCOMPLETE RIGHT BUNDLE BRANCH BLOCK LOW QRS VOLTAGE IN PRECORDIAL LEADS BORDERLINE R WAVE PROGRESSION, ANTERIOR LEADS BORDERLINE T WAVE ABNORMALITY- INFERIOR LEADS ABNORMAL ECG COMPARED TO ECG 01/13/2023 18:30:03 NO SIGNIFICANT CHANGES Electronically Signed On 02-10-2023 16:37:20 CDT by Kenneth Sampson D.O.
[2023-02-10 09:59] LABS: Basophils Absolute Auto 0.1 K/mm3 (0.0-0.1); Basophils Percent Auto 0.3 % (0.2-1.2); Eosinophils Percent Auto 0.1 % (0-4.4); Hematocrit 37.7 % (42.0-52.0); Hemoglobin 12.1 g/dL (14.0-18.0); Immature Granulocyte Absolute 0.09 K/mm3 (0.00-0.031); Immature Granulocyte Percent A 0.5 % (0-0.5); Lymphocytes Absolute Auto 1.72 K/mm3 (0.9-3.2); Lymphocytes Percent Auto 9.6 % (18.3-44.2); Mean Corpuscular HGB Conc 32.1 g/dl (32-36); Mean Corpuscular Hemoglobin 29.2 pg (26-34); Mean Corpuscular Volume 91.1 fl (80-100); Mean Platelet Volume 10.2 fl (7.4-10.4); Monocytes Absolute Auto 1.1 K/mm3 (0.1-0.6); Monocytes Percent Auto 6.1 % (2.6-8.5); Neutrophils Absolute Auto 14.9 K/mm3 (1.3-6.7); Neutrophils Percent Auto 83.4 % (45.5-73.1); Platelet Count Result 450 k/mm3 (150-375); Red Blood Count 4.14 M/mm3 (4.6-6.20); Red Cell Distribution Width 13.9 % (11.5-14.5); White Blood Count 17.9 K/mm3 (4.5-10.0)
--- NOTE | 2023-02-10 10:07 | ED.GENADULT ---
HPI - General Adult General Chief complaint: Fever <EDWIN Noriega Last Filed: 02/10/23 16:04> Stated complaint: Temp >100F <EDWIN Noriega Last Filed: 02/10/23 16:04> Time Seen by Provider: 02/10/23 09:40 <EDWIN Noriega Last Filed: 02/10/23 16:04> Source: patient <EDWIN Noriega Last Filed: 02/10/23 16:04> Mode of arrival: ambulatory <EDWIN Noriega Last Filed: 02/10/23 16:04> Limitations: no limitations <EDWIN Noriega Last Filed: 02/10/23 16:04> History of Present Illness HPI narrative: This is a 63-year-old male with PMH of acute cholangitis, cholecystitis, hypertension s/p cholecystectomy and drain tube placement on 01/15/2023 who presents today to the ED for chief complaint of ongoing fevers. Reports he has had intermittent fevers ever since before his surgery but they have not resolved even while taking the antibiotics prescribed after being discharged from the hospital a little over a week ago. Patient states his Tmax is 103.7. He reports a little bit of right upper quadrant pain but this is minimal at this point. States he was nauseous yesterday but has not had any nausea or vomiting today. Denies any problems with bowel movements. States his urine is darker colored but no other urinary symptoms. Endorses some general weakness but no chest pain, shortness of breath or cough. He has been taking ciprofloxacin and Flagyl at home. <EDWIN Noriega Last Filed: 02/10/23 16:04> Related Data Home medications: Home Medications Medication Instructions Recorded Confirmed amlodipine 5 mg tablet 5 mg PO DAILY 01/13/23 02/10/23 metoprolol tartrate 100 mg tablet 100 mg PO BID 01/13/23 02/10/23 <EDWIN Noriega Last Filed: 02/10/23 16:04> Allergies/adverse reactions: Allergies Allergy/AdvReac Type Severity Reaction Status Date / Time No Known Allergies Allergy Unknown Verified 02/10/23:28 <Daniel Serna PA-C - Last Filed: 02/10/23 16:04> Review of Systems Review of Systems: All systems as dictated in HPI <EDIWN Noriega Last Filed: 02/10/23 16:04> [facility] Past Medical History Medical History: Medical History Back pain Choledocholithiasis with acute cholecystitis Closed right hand fracture Hypertension <Daniel Serna PA-C - Last Filed: 02/10/23 16:04> Surgical History Surgical History: Surgical History History of removal of pigmented skin lesion History of tonsillectomy Hx of cholecystectomy <Daniel Serna PA-C - Last Filed: 02/10/23 16:04> Family History Family History: Family History Father Malignant neoplasm of prostate Mother Family history of primary malignant neoplasm of liver <Daniel Serna PA-C - Last Filed: 02/10/23 16:04> Social History Social History: Social History Social History: He lives with his who is the power senior attorney. He has 2 children. He works for [employer] Code status full code Smoking status: Never smoker Alcohol intake: never Substance use: never Lack of Transportation: No Lack of Food: Never True Current Housing: I Have Housing Concerned About Future Housing: No Difficulty Paying Gas/Electric Bills: No Difficulty Paying for Meds: No Currently Unemployed: No Education: Decline to Answer Difficulty w/ Childcare or Family Care: No Spiritual care concerns: No <EDWIN Noriega Last Filed: 02/10/23 16:04> Exam Narrative: GENERAL: Ill-appearing but able to converse and fully participate with the exam. HEAD: Normocephalic, atraumatic. EYES: PERRLA and EOMI. ENT: Nares clear, no rhinorrhea or epistaxis. Mucous membranes moist. Oropharynx without tonsil
[2023-02-10 10:08] LABS: Lactic Acid Reflex 1.6 mmol/L (0.7-2.0)
[2023-02-10 10:11] LABS: Alanine Aminotransferase 21 U/L (6-50); Albumin Level 3.8 g/dL (3.5-5.1); Alkaline Phosphatase 116 U/L (38-126); Anion Gap 6 mmol/L (8-16); Aspartate Amino Transferase 28 U/L (17-59); Bilirubin,Total 0.8 mg/dL (0.2-1.3); Blood Urea Nitrogen 22 mg/dL (9-20); Calcium 8.8 mg/dL (8.4-10.2); Carbon Dioxide 31 mmol/L (22-30); Chloride 98 mmol/L (98-107); Estimated CRCL calculation 60 ml/min; Estimated Glomerular Filt Rate 51; Glucose 153 mg/dL (65-110); Sodium 135 mmol/L (137-145)
[2023-02-10 10:12] LABS: INR 1.4; Prothrombin Time 17.5 Seconds (11.1-14.7)
[2023-02-10 10:13] LABS: Partial Thromboplastin Time 37.8 SECONDS (22.3-36.8)
[2023-02-10] MEDS: SODIUM CHLORIDE 0.9% IV 1,000 ML 999 ML IV CONT ×2 (10:15→11:47)
[2023-02-10 10:25] LABS: CRP 18.7 mg/dL (<1.0)
[2023-02-10 10:35] LABS: SARS-CoV-2 RNA PCR Negative (Negative)
[2023-02-10 10:37] LABS: Appearance Urine Cloudy (Clear); Bacteria Urine None Seen /hpf; Bilirubin Urine 1+ (Negative); Blood Urine 2+ (Negative); Color Urine Dark Yellow (Yellow); Glucose Urine UA Negative (Negative); Ketones Urine Trace mg/dL (Negative); Leukocyte Esterase Ur 1+ LEU/UL (Negative); Mucus Urine Present /lpf; Nitrate Urine Positive (Negative); Protein Urine 1+ mg/dL (Negative); Specific Grav Ur 1.032 (1.001-1.035); Squamous Epithelial Cell Urine Occasional /hpf (Few); WBC Urine 0-5 /hpf; pH Urine 5.5 (5.0-9.0)
[2023-02-10 10:38] LABS: Add Urine Microscopic? YES
[2023-02-10] MEDS: PIPERACILLN/TAZ 3.375GM/NS50ML 3.375 GM/50 ML BAG IVPB ×2 (12:59→16:41)
[2023-02-10] MEDS: SODIUM CHLORIDE 0.9% IV 1,000 ML 125 ML IV CONT (16:41)
--- NOTE | 2023-02-10 18:38 | ADMGEN ---
This patient, Erlinda Boles, was admitted to [facility] Room 304-01. Patient/family oriented to hospital policies and general routines including ID bracelet, bed and alarms, visiting hours, pain management, procedures, bathroom and other care routines, personal items, smoking policy, room service/diet, and visiting hours. Information on how to activate the Rapid Response Team has been discussed. Patient/Family are encouraged to report perceived risks to care and to ask questions if they do not understand what they are told or what they should do.
[2023-02-10] MEDS: ACETAMINOPHEN 325 MG TABLET 650 MG PO (22:25)
[2023-02-11] MEDS: PIPERACILLN/TAZ 3.375GM/NS50ML 3.375 GM/50 ML BAG IVPB ×5 (00:01→23:00)
[2023-02-11 00:02] VITALS: TEMP 36.7
[2023-02-11 00:06] VITALS: TEMP 36.7
[2023-02-11] MEDS: SODIUM CHLORIDE 0.9% IV 1,000 ML 125 ML IV CONT ×3 (04:33→20:50)
[2023-02-11 06:00] VITALS: BP 143/84; PULSE 96; RESP 20; TEMP 36.6; O2SAT 97
--- NOTE | 2023-02-11 09:08 | PM.IMHP ---
H&P: HPI History of Present Illness Date/Time: 02/11/23 09:08 Chief Complaint: Fevers, generalized malaise Narrative: The patient is a 63-year-old male status post difficult cholecystectomy on 01/15, please see full operative report for details of that procedure. He re-presented to the hospital on 01/30 and right upper quadrant abscess was noted. The patient was subsequently admitted and percutaneous drainage of abscess was undertaken, please see full operative report for details of that procedure. The patient was also started on IV abx. The patient was discharged home and reports minimal drainage from percutaneous drain which was subsequently removed in office on 02/05. After removal, the patient reports that he began to have high fevers at home. He also complains of chills, poor appetite, weakness, generalized malaise. The patient re-presented to the emergency department and workup including imaging was significant for recurrent right upper quadrant abscess. The patient has now been admitted to our service for further workup and care. Review of Systems Review of Systems: All systems reviewed & are unremarkable except as noted in HPI and below PMFSH Past Medical History Medical History Back pain Choledocholithiasis with acute cholecystitis Closed right hand fracture Hypertension Surgical History Surgical History History of removal of pigmented skin lesion History of tonsillectomy Hx of cholecystectomy Family History Family History Father Malignant neoplasm of prostate Mother Family history of primary malignant neoplasm of liver Social History Social History Social History: He lives with his who is the power assistant attorney general. He has 2 children. He works for [employer]. Code status full code Smoking status: Never smoker Alcohol intake: never Substance use: never Lack of Transportation: No Lack of Food: Never True Current Housing: I Have Housing Concerned About Future Housing: No Difficulty Paying Gas/Electric Bills: No Difficulty Paying for Meds: No Currently Unemployed: No Education: Decline to Answer Difficulty w/ Childcare or Family Care: No Spiritual care concerns: No Meds Home Medications and Allergies Home Medications Medication Instructions Recorded Confirmed Type amlodipine 5 mg tablet 5 mg PO DAILY 01/13/23 02/10/23 History metoprolol tartrate 100 mg tablet 100 mg PO BID 01/13/23 02/10/23 History Allergies Allergy/AdvReac Type Severity Reaction Status Date / Time No Known Allergies Allergy Unknown Verified 02/10/23 09:28 Vital Signs Vital Signs - 24 hr 02/10/23 09:31 02/10/23 13:01 02/10/23 09:51 Temperature 38.4 C H 38.1 C H Pulse Rate 116 H 116 H Respiratory Rate 18 18 Blood Pressure 134/89 Pulse Oximetry 98 96 Oxygen Delivery 02/10/23 10:00 02/10/23 10:01 02/10/23 10:15 Temperature Pulse Rate 116 H 115 H 113 H Respiratory Rate 25 H 23 H 26 H Blood Pressure 139/89 Pulse Oximetry 94 95 96 Oxygen Delivery 02/10/23 10:16 02/10/23 10:30 02/10/23 10:31 Temperature Pulse Rate 113 H 105 H 105 H Respiratory Rate 25 H 17 20 Blood Pressure 149/90 H 152/89 H Pulse Oximetry 95 97 97 Oxygen Delivery 02/10/23 10:45 02/10/23 10:46 02/10/23 11:04 Temperature Pulse Rate 107 H 107 H Respiratory Rate 24 H 21 H 21 H Blood Pressure 158/88 H 150/86 H Pulse Oximetry 97 98 99 Oxygen Delivery 02/10/23 11:06 02/10/23 11:19 02/10/23 11:30 Temperature Pulse Rate 107 H 107 H 106 H Respiratory Rate 25 H 28 H 29 H Blood Pressure Pulse Oximetry 98 95 96 Oxygen Delivery 02/10/23 11:45 02/10/23 11:46 02/10/23 12:35 Temperature Pulse Rate 109 H 109 H 107 H Respiratory R
[2023-02-11 14:00] VITALS: BP 159/91; PULSE 102; RESP 14; TEMP 37.4; O2SAT 96
[2023-02-11 14:59] VITALS: TEMP 37.4
[2023-02-11] MEDS: ACETAMINOPHEN 325 MG TABLET 650 MG PO ×2 (14:59→21:10)
[2023-02-11 22:00] VITALS: BP 157/78; PULSE 102; RESP 18; TEMP 37.5; O2SAT 96
[2023-02-11] MEDS: MELATONIN 5 MG TABLET PO (22:48)
--- NOTE | 2023-02-12 04:06 | PC.NURSE ---
at 2100 pt asked what his temperature was. upon informing pt of his temperature, pt asked if he could take some tylenol for low-grade fever and just not feeling very good . pt later asked for a sleep aid, call placed to Dr Gardner by this RN, and order for melatonin placed.
[2023-02-12] MEDS: SODIUM CHLORIDE 0.9% IV 1,000 ML 125 ML IV CONT ×3 (05:21→17:49)
[2023-02-12] MEDS: PIPERACILLN/TAZ 3.375GM/NS50ML 3.375 GM/50 ML BAG IVPB ×3 (05:21→17:50)
[2023-02-12 06:00] VITALS: BP 149/93; PULSE 108; RESP 20; TEMP 37.6; O2SAT 94
[2023-02-12 06:27] LABS: Hematocrit 32.1 % (42.0-52.0); Hemoglobin 10.3 g/dL (14.0-18.0); Mean Corpuscular HGB Conc 32.1 g/dl (32-36); Mean Corpuscular Volume 90.4 fl (80-100); Mean Platelet Volume 10.4 fl (7.4-10.4); Platelet Count Result 321 k/mm3 (150-375); Red Blood Count 3.55 M/mm3 (4.6-6.20); Red Cell Distribution Width 13.9 % (11.5-14.5); White Blood Count 13.8 K/mm3 (4.5-10.0)
[2023-02-12 06:38] LABS: Anion Gap 6 mmol/L (8-16); Blood Urea Nitrogen 11 mg/dL (9-20); Calcium 7.6 mg/dL (8.4-10.2); Carbon Dioxide 25 mmol/L (22-30); Chloride 104 mmol/L (98-107); Estimated CRCL calculation 82 ml/min; Estimated Glomerular Filt Rate > 60; Glucose 110 mg/dL (65-110); Potassium 3.7 mmol/L (3.4-5.0); Sodium 135 mmol/L (137-145)
--- NOTE | 2023-02-12 11:18 | PM.PNGS ---
Progress Note: A&P Assessment and Plan (1) Intra-abdominal abscess: Code(s): K65.1 - Peritoneal abscess Status: Acute Assessment and Plan: Plan for percutaneous drainage in Radiology today. Continue IV Zosyn, WBC trending down. Unclear why this did not improve following previous percutaneous drainage. Will order a HIDA scan tomorrow to evaluate for possible bile leak. (2) Hypertension: Qualifiers: Hypertension type: primary hypertension Qualified Code(s): I10 - Essential (primary) hypertension Code(s): I10 - Essential (primary) hypertension Status: Acute Assessment and Plan: Restarted amlodipine and metoprolol, monitor BP Plan I have discussed the patient's case and plan of care with Dr. Gordon Subjective Subjective Date/Time Seen: 02/12/23 11:18 Patient reports: no new complaints, flatus, diarrhea (One episode of diarrhea this morning) and fever (Low-grade temp 99.6? F this morning) Interval history: Patient readmitted with intra-abdominal abscess following a difficult laparoscopic cholecystectomy on 01/15/2023. Perc drain removed last week in the office. He developed subsequent fevers and epigastric abdominal pain that brought him back into the ER. Chart reviewed. Patient seen this morning with his at the bedside. He is still having some epigastric abdominal pain, but not severe. He reports having chronic left hip pain that is more bothersome than his abdominal pain. He will not discuss why he has this chronic pain, but states it is not arthritic in nature. He is requesting pain medication for the hip pain. He does not take any pain medication for this home. He reports a poor appetite and has not been eating much since surgery. He feels he has lost about 15-20 lb. Denies any nausea or vomiting. No other complaints at this time. He is currently NPO for percutaneous drainage today. Review of Systems Constitutional: Constitutional: Reports no additional constitutional complaints, Reports fever(s), Reports poor appetite and Reports weight loss Cardiovascular: Cardiovascular: Reports no additional cardiovascular complaints and Denies chest pain Respiratory: Respiratory: Reports no additional respiratory complaints, Denies cough and Denies dyspnea Gastrointestinal: Gastrointestinal: Reports as per HPI and Reports no additional gastrointestinal complaints Exam Const: General: comfortable and no acute distress Orientation/consciousness: patient oriented x3 GI: Inspection: non-distended, incision (incisions dry and glue intact, healing well) and other (perc drain site healing well, no erythema or drainage) GI Palp: Yes Soft to palpation (but some fullness/firmness noted in epigastrum/RUQ), Yes Tenderness to palpation present (GI) (epigastric and RUQ tenderness), No Guarding due to palpation present (GI) and No Rebound tenderness present Auscultation: normal bowel sounds Objective Data Vital Signs Vital Signs: Vital Signs - 24 hr 02/11/23 14:59 02/11/23 14:00 02/11/23 22:00 Temperature 99.3 F 99.3 F 99.5 F Pulse Rate 102 H 102 H Respiratory Rate 14 18 Blood Pressure 159/91 H 157/78 H Pulse Oximetry 96 96 Oxygen Delivery 02/11/23 20:00 02/12/23 06:00 02/12/23 08:00 Temperature 99.6 F Pulse Rate 108 H Respiratory Rate 20 Blood Pressure 149/93 H Pulse Oximetry 94 Oxygen Delivery Room Air Room Air Intake/Output Intake/Output: Intake & Output 02/09/23 02/10/23 02/11/23 02/12/23 23:59 23:59 23:59 23:59 Intake Total 3200 3810 1300 Output Total 1275 675 Balance 3200 2535 625 Meds/Results Medications: Active Medications Generic Name Dose Route Start Last Admin Trade Name Freq PRN Reason Stop Dose Admin Acetaminophen 650 mg 02/10/23 22:12 02/11/23 21:10 Acetaminophen 325 Mg Tablet PO 650 mg Q6H PRN Administration Mild Pain (1-3) or Fever Hydrocodone Bitart/Acetaminophen 1 tab 02/12/23 11:16
[2023-02-12 12:45] VITALS: TEMP 37.9
[2023-02-12] MEDS: ACETAMINOPHEN 325 MG TABLET 650 MG PO (12:45)
[2023-02-12 14:00] VITALS: BP 153/86; PULSE 110; RESP 20; TEMP 38.7; O2SAT 96
[2023-02-12] MEDS: HYDROcodone/acetaminophen (*CRX) 5-325 MG TABLET 1 TAB PO (15:35)
[2023-02-12 20:48] VITALS: BP 115/71; PULSE 93
[2023-02-12 22:00] VITALS: BP 115/71; PULSE 93; RESP 13; TEMP 36.3; O2SAT 96
[2023-02-13] MEDS: PIPERACILLN/TAZ 3.375GM/NS50ML 3.375 GM/50 ML BAG IVPB ×5 (00:57→23:19)
[2023-02-13] MEDS: ONDANSETRON INJ 4 MG/2 ML VIAL IV PUSH (03:08)
[2023-02-13] MEDS: MORPHINE SULFATE (*CRX) 2 MG/ML INJ IV PUSH (03:09)
[2023-02-13] MEDS: SODIUM CHLORIDE 0.9% IV 1,000 ML 125 ML IV CONT ×2 (03:13→12:52)
[2023-02-13 05:35] VITALS: BP 155/80; PULSE 132; RESP 14; TEMP 36.9; O2SAT 97
[2023-02-13 06:19] LABS: Hematocrit 31.2 % (42.0-52.0); Hemoglobin 9.8 g/dL (14.0-18.0); Mean Corpuscular HGB Conc 31.4 g/dl (32-36); Mean Corpuscular Hemoglobin 28.9 pg (26-34); Mean Platelet Volume 10.7 fl (7.4-10.4); Platelet Count Result 389 k/mm3 (150-375); Red Blood Count 3.39 M/mm3 (4.6-6.20); Red Cell Distribution Width 14.1 % (11.5-14.5); White Blood Count 19.1 K/mm3 (4.5-10.0)
[2023-02-13 06:30] LABS: Anion Gap 9 mmol/L (8-16); Blood Urea Nitrogen 12 mg/dL (9-20); Calcium 7.8 mg/dL (8.4-10.2); Carbon Dioxide 23 mmol/L (22-30); Chloride 106 mmol/L (98-107); Estimated CRCL calculation 82 ml/min; Estimated Glomerular Filt Rate > 60; Glucose 138 mg/dL (65-110); Potassium 4.7 mmol/L (3.4-5.0); Sodium 138 mmol/L (137-145)
[2023-02-13 09:04] VITALS: PULSE 129
[2023-02-13] MEDS: amLODIPine BESYLATE 5 MG TABLET PO (09:04)
[2023-02-13] MEDS: METOPROLOL TARTRATE 50 MG TAB 100 MG PO ×2 (09:04→21:09)
--- NOTE | 2023-02-13 12:00 | PM.PNGS ---
Progress Note: A&P Assessment and Plan (1) Intra-abdominal abscess: Code(s): K65.1 - Peritoneal abscess Status: Acute Assessment and Plan: S/p perc drain on 02/12. High output of bloody drainage from perc drain, continue to monitor output. Cultures pending. Proceed with HIDA scan today. Continue IV Zosyn. Monitor H/H and repeat labs with coags tomorrow. Plan I have discussed the patient's case and plan of care with Dr. Gordon Subjective Subjective Date/Time Seen: 02/13/23 12:00 Patient reports: no new complaints, feels better, pain is less and fever (yesterday around 2:00 pm) Interval history: Patient feeling better today with less abdominal pain. He does not have an appetite, but is thirsty. He has had some intermittent nausea, no vomiting. He has had about 700 cc bloody drainage out of his perc drain since it was placed yesterday. Review of Systems Review of Systems: All systems reviewed & are unremarkable except as noted in HPI and below Exam Const: General: comfortable and no acute distress Orientation/consciousness: patient oriented x3 Resp: Effort & Inspection: normal respiratory effort Auscultation: clear to auscultation bilaterally Cardio: Rate: tachycardic Rhythm: regular rhythm GI: Inspection: non-distended, incision (incisions dry and glue intact, healing well) and other (RUQ perc drain with bloody drainage) GI Palp: Yes Soft to palpation, Yes Tenderness to palpation present (GI) (improved, minimal RUQ tenderness near perc drain), No Guarding due to palpation present (GI) and No Rebound tenderness present Auscultation: normal bowel sounds Extrem: General: no edema Objective Data Vital Signs Vital Signs: Vital Signs - 24 hr 02/12/23 12:45 02/12/23 14:00 02/12/23 20:48 Temperature 100.2 F H 101.6 F H Pulse Rate 110 H 93 Respiratory Rate 20 Blood Pressure 153/86 H 115/71 Pulse Oximetry 96 Oxygen Delivery 02/12/23 22:00 02/12/23 20:00 02/13/23 05:35 Temperature 97.4 F L 98.4 F Pulse Rate 93 132 H Respiratory Rate 13 14 Blood Pressure 115/71 155/80 H Pulse Oximetry 96 97 Oxygen Delivery Room Air 02/13/23 09:04 Temperature Pulse Rate 129 H Respiratory Rate Blood Pressure Pulse Oximetry Oxygen Delivery Intake/Output Intake/Output: Intake & Output 02/10/23 02/11/23 02/12/23 02/13/23 23:59 23:59 23:59 23:59 Intake Total 3200 3810 3690 1550 Output Total 1275 1095 2425 Balance 3200 2535 1536 -341 Meds/Results Medications: Active Medications Generic Name Dose Route Start Last Admin Trade Name Freq PRN Reason Stop Dose Admin Acetaminophen 650 mg 02/10/23 22:12 02/12/23 12:45 Acetaminophen 325 Mg Tablet PO 650 mg Q6H PRN Administration Mild Pain (1-3) or Fever Hydrocodone Bitart/Acetaminophen 1 tab 02/12/23 11:16 02/12/23 15:35 Hydrocodone/Acetaminophen (*Crx) 5-325 Mg Tablet PO 1 tab Q4H PRN Administration Pain Rated 4-6 Amlodipine Besylate 5 mg 02/13/23 09:00 02/13/23 09:04 Amlodipine Besylate 5 Mg Tablet PO 5 mg DAILY YARA Administration Sodium Chloride 1,000 mls @ 125 mls/hr 02/10/23 12:55 02/13/23 03:13 Normal Saline Iv IV CONT 125 mls/hr .Q8H YARA Administration Piperacillin/Tazobactam/Dextrose 3.375 gm in 50 mls @ 100 mls/hr 02/10/23 18:00 02/13/23 05:47 Zosyn 3.375 Gm/Ns 50 Ml IVPB 100 mls/hr Q6H YARA Administration Melatonin 5 mg 02/11/23 22:34 02/11/23 22:48 Melatonin 5 Mg Tablet PO 5 mg HS PRN Administration Insomnia Metoprolol Tartrate 100 mg 02/12/23 21:00 02/13/23 09:04 Metoprolol Tartrate 50 Mg Tab PO 100 mg Q12HR YARA Administration Morphine Sulfate 4 mg 02/10/23 12:54 Morphine Sulfate (*Crx) 4 Mg/Ml Inj IV PUSH Q2H PRN Pain Rated 7-10 Morphine Sulfate 2 mg 02/12/23 11:15 02/13/23 03:09 Morphine Sulfate (*Crx) 2 Mg/Ml Inj IV PUSH 2 mg Q2H PRN Administration Pain Rated 4-6 Ondansetron HC
[2023-02-13] MEDS: PHYTONADIONE 5 MG TABLET 10 MG PO (12:52)
[2023-02-13 14:00] VITALS: BP 116/72; PULSE 89; RESP 20; TEMP 37.3; O2SAT 96
[2023-02-13] MEDS: ACETAMINOPHEN 325 MG TABLET 650 MG PO (16:53)
[2023-02-13 21:09] VITALS: PULSE 89
[2023-02-13] MEDS: MELATONIN 5 MG TABLET PO (21:12)
[2023-02-13 21:33] VITALS: BP 134/73; PULSE 90; RESP 13; TEMP 36.3; O2SAT 96
[2023-02-14] MEDS: PIPERACILLN/TAZ 3.375GM/NS50ML 3.375 GM/50 ML BAG IVPB ×4 (05:17→23:57)
[2023-02-14 05:29] VITALS: BP 130/70; PULSE 78; RESP 14; TEMP 36.1; O2SAT 95
[2023-02-14 06:47] LABS: INR 1.2; Prothrombin Time 16.2 Seconds (11.1-14.7)
[2023-02-14 06:52] LABS: Alanine Aminotransferase 41 U/L (6-50); Albumin Level 2.5 g/dL (3.5-5.1); Alkaline Phosphatase 177 U/L (38-126); Anion Gap 2 mmol/L (8-16); Aspartate Amino Transferase 124 U/L (17-59); Bilirubin,Total 0.6 mg/dL (0.2-1.3); Blood Urea Nitrogen 19 mg/dL (9-20); Calcium 7.3 mg/dL (8.4-10.2); Carbon Dioxide 28 mmol/L (22-30); Chloride 105 mmol/L (98-107); Estimated CRCL calculation 82 ml/min; Estimated Glomerular Filt Rate > 60; Glucose 97 mg/dL (65-110); Potassium 3.4 mmol/L (3.4-5.0); Sodium 135 mmol/L (137-145)
[2023-02-14 06:55] LABS: Hematocrit 24.2 % (42.0-52.0); Hemoglobin 7.5 g/dL (14.0-18.0); Mean Corpuscular Hemoglobin 28.5 pg (26-34); Mean Platelet Volume 10.6 fl (7.4-10.4); Platelet Count Result 316 k/mm3 (150-375); Red Blood Count 2.63 M/mm3 (4.6-6.20); Red Cell Distribution Width 14.1 % (11.5-14.5); White Blood Count 12.4 K/mm3 (4.5-10.0)
[2023-02-14 08:00] VITALS: PULSE 70; O2SAT 95
[2023-02-14] MEDS: amLODIPine BESYLATE 5 MG TABLET PO (08:00)
[2023-02-14] MEDS: METOPROLOL TARTRATE 50 MG TAB 100 MG PO ×2 (08:00→22:07)
--- NOTE | 2023-02-14 11:38 | PM.PNGS ---
Progress Note: A&P Assessment and Plan (1) Intra-abdominal abscess: Code(s): K65.1 - Peritoneal abscess Status: Acute Assessment and Plan: Cultures negative so far. Continue IV Zosyn. (2) Acute blood loss anemia: Code(s): D62 - Acute posthemorrhagic anemia Status: Acute Assessment and Plan: Hemoglobin now 7.5. BP and HR stable and overall asymptomatic. Repeat H/H at 2pm today. Drain output decreasing so hopefully not still actively bleeding. Will start Niferex today. Patient does not want transfusion. Subjective Subjective Date/Time Seen: 02/14/23 11:38 Interval history: Tolerating diet. No fevers. Denies dizziness/lightheadedness. Exam GI: Inspection: non-distended and other (Minimal bloody output in pigtail drain) GI Palp: Yes Soft to palpation, No Tenderness to palpation present (GI) and No Guarding due to palpation present (GI) Auscultation: normal bowel sounds Objective Data Vital Signs Vital Signs: Vital Signs - 24 hr 02/13/23 14:00 02/13/23 21:09 02/13/23 21:33 Temperature 37.3 C 36.3 C L Pulse Rate 89 89 90 Respiratory Rate 20 13 Blood Pressure 116/72 134/73 Pulse Oximetry 96 96 Oxygen Delivery 02/14/23 05:29 02/14/23 08:00 02/14/23 08:00 Temperature 36.1 C L Pulse Rate 78 70 Respiratory Rate 14 Blood Pressure 130/70 Pulse Oximetry 95 95 Oxygen Delivery Room Air Intake/Output Intake/Output: Intake & Output 02/11/23 02/12/23 02/13/23 02/14/23 23:59 23:59 23:59 23:59 Intake Total 3810 3690 2750 1550 Output Total 1275 1095 2425 790 Balance 6781 9170 376 425 Meds/Results Medications: Active Medications Generic Name Dose Route Start Last Admin Trade Name Freq PRN Reason Stop Dose Admin Acetaminophen 650 mg 02/10/23 22:12 02/13/23 16:53 Acetaminophen 325 Mg Tablet PO 650 mg Q6H PRN Administration Mild Pain (1-3) or Fever Hydrocodone Bitart/Acetaminophen 1 tab 02/12/23 11:16 02/12/23 15:35 Hydrocodone/Acetaminophen (*Crx) 5-325 Mg Tablet PO 1 tab Q4H PRN Administration Pain Rated 4-6 Amlodipine Besylate 5 mg 02/13/23 09:00 02/14/23 08:00 Amlodipine Besylate 5 Mg Tablet PO 5 mg DAILY YARA Administration Piperacillin/Tazobactam/Dextrose 3.375 gm in 50 mls @ 100 mls/hr 02/10/23 18:00 02/14/23 05:50 Zosyn 3.375 Gm/Ns 50 Ml IVPB Infused Q6H YARA Infusion Melatonin 5 mg 02/11/23 22:34 02/13/23 21:12 Melatonin 5 Mg Tablet PO 5 mg HS PRN Administration Insomnia Metoprolol Tartrate 100 mg 02/12/23 21:00 02/14/23 08:00 Metoprolol Tartrate 50 Mg Tab PO 100 mg Q12HR YARA Administration Morphine Sulfate 4 mg 02/10/23 12:54 Morphine Sulfate (*Crx) 4 Mg/Ml Inj IV PUSH Q2H PRN Pain Rated 7-10 Morphine Sulfate 2 mg 02/12/23 11:15 02/13/23 03:09 Morphine Sulfate (*Crx) 2 Mg/Ml Inj IV PUSH 2 mg Q2H PRN Administration Pain Rated 4-6 Ondansetron HCl 4 mg 02/10/23 12:54 02/13/23 03:08 Ondansetron Inj 4 Mg/2 Ml Vial IV PUSH 4 mg Q4H PRN Administration Nausea Polysaccharide Iron Complex 150 mg 02/14/23 11:40 Polysaccharide Iron Complex 150 Mg Capsule PO BIDWM [facility] Radiology Results: ITS Impressions Chest X-Ray 02/10/23 10:30 IMPRESSION: 1. No acute cardiopulmonary abnormality. Abdomen/Pelvis CT 02/10/23 11:54 IMPRESSION: 1. Gallbladder fossa abscess without significant change. Percutaneous drain has been removed. Catheter Placement CT 02/12/23 14:27 IMPRESSION: 1. Successful CT-guided right upper quadrant abscess drainage. 2. 10 mL opaque, red fluid was sent for aerobic and anaerobic cultures. Hepatobiliary Scan Nuclear Medicine 02/13/23 13:01 IMPRESSION: 1. No bile leak. Labs Labs: Laboratory Results - last 24 hr 02/14/23 05:47 WBC 12.4 H RBC 2.63 L Hgb 7.5 L Hct 24.2 L MCV 92.0 MCH 28.5 MCHC 31.0 L RDW 14.1 P
[2023-02-14] MEDS: POLYSACCHARIDE IRON COMPLEX 150 MG CAPSULE PO ×2 (12:07→17:09)
[2023-02-14 14:00] VITALS: BP 136/78; PULSE 87; RESP 22; TEMP 36.7; O2SAT 96
[2023-02-14 14:54] LABS: Hematocrit 28.3 % (42.0-52.0); Hemoglobin 8.9 g/dL (14.0-18.0)
[2023-02-14 21:26] VITALS: BP 142/80; PULSE 93; RESP 13; TEMP 37.2; O2SAT 98
[2023-02-15 05:30] VITALS: BP 130/60; PULSE 76; RESP 12; TEMP 36.7; O2SAT 97
[2023-02-15 06:14] LABS: Hematocrit 25.5 % (42.0-52.0); Mean Corpuscular HGB Conc 31.4 g/dl (32-36); Mean Corpuscular Hemoglobin 28.7 pg (26-34); Mean Corpuscular Volume 91.4 fl (80-100); Mean Platelet Volume 10.4 fl (7.4-10.4); Platelet Count Result 357 k/mm3 (150-375); Red Blood Count 2.79 M/mm3 (4.6-6.20); Red Cell Distribution Width 14.1 % (11.5-14.5); White Blood Count 10.7 K/mm3 (4.5-10.0)
[2023-02-15] MEDS: PIPERACILLN/TAZ 3.375GM/NS50ML 3.375 GM/50 ML BAG IVPB (06:17)
[2023-02-15 06:30] LABS: Anion Gap 4 mmol/L (8-16); Blood Urea Nitrogen 13 mg/dL (9-20); Calcium 7.1 mg/dL (8.4-10.2); Carbon Dioxide 28 mmol/L (22-30); Chloride 106 mmol/L (98-107); Estimated CRCL calculation 91 ml/min; Estimated Glomerular Filt Rate > 60; Glucose 93 mg/dL (65-110); Potassium 3.2 mmol/L (3.4-5.0); Sodium 138 mmol/L (137-145)
--- NOTE | 2023-02-15 08:39 | PM.DS ---
DS: Admitting Diagnosis Discharge Date 02/15/2023 Admitting Diagnosis Intra-abdominal abscess, hypertension DS: Discharge Diagnosis Discharge Diagnosis (1) Intra-abdominal abscess: Code(s): K65.1 - Peritoneal abscess Status: Acute (2) Acute blood loss anemia: Code(s): D62 - Acute posthemorrhagic anemia Status: Acute (3) Hypertension: Qualifiers: Hypertension type: primary hypertension Qualified Code(s): I10 - Essential (primary) hypertension Code(s): I10 - Essential (primary) hypertension Status: Acute DS: Summary Hospital Course Reason for hospitalization: Recurrent intra-abdominal abscess after laparoscopic cholecystectomy for cholangitis Hospital Course: This is a 63-year-old man who presented to the emergency department on 02/10/2023 with recurrent fevers. He was originally hospitalized on 01/13/2023 for cholangitis, sepsis, and choledocholithiasis. He underwent ERCP and laparoscopic cholecystectomy during that admission and was discharged home doing well. He completed a 2 week course of antibiotics the 1st time. He was then readmitted 01/30/2023 for a postoperative abscess within the gallbladder fossa. Percutaneous drain was performed at that time by Interventional Radiology. He was then discharged home on antibiotics again and the catheter was removed in the office on 02/05/2023. A few days later he began experiencing recurrent fevers and was directed to return back to the emergency department. CT on 02/10 showed a large recurrent abscess. He was admitted and started on broad-spectrum IV antibiotics. He continued to have fevers initially after admission, but once the percutaneous drain was placed on 02/12/2023 the fevers began resolving. There was a large amount of bloody output initially from the drain and the patient's hemoglobin did slowly trend down words. A HIDA scan was obtained to rule out bile leak. This was read as normal. The drain output did start slowing down and he appeared hemodynamically stable. Blood cultures and abscess cultures were negative. He did see a steady decrease in his white blood count remained afebrile. His hemoglobin was monitored for several days until it appeared stable. 02/15/2023 his H&H was stable and he was tolerating a regular diet. He was discharged home with the drain in place was placed on Cipro and Flagyl. Plan will be to get a follow-up CT before removing the drain this time. Status at Discharge Functional status at discharge: independent ambulation Overall status at discharge: patient is back to baseline Time Spent with Patient Time attestation: Total time spent providing and/or coordinating discharge services: Time spent: Less than 30 minutes Exam Const: General: comfortable and no acute distress Orientation/consciousness: patient oriented x3 Resp: Effort & Inspection: normal respiratory effort Auscultation: clear to auscultation bilaterally Cardio: Rate: regular rate Rhythm: regular rhythm Heart sounds: S1 normal heart sound present and S2 normal heart sound present GI: Inspection: non-distended and other (Pigtail drain small amount of bloody drainage) GI Palp: Yes Soft to palpation, No Tenderness to palpation present (GI) and No Guarding due to palpation present (GI) DS: Data Data Completed and Pending Labs on day of discharge: Labs from last 24 hours 02/15/23 02/14/23 05:23 14:16 WBC 10.7 H RBC 2.79 L Hgb 8.0 L 8.9 L Hct 25.5 L 28.3 L MCV 91.4 MCH 28.7 MCHC 31.4 L RDW 14.1 Plt Count 357 MPV 10.4 Sodium 138 Potassium 3.2 L Chloride 106 Carbon Dioxide 28 Anion Gap 4 L BUN 13 D Creatinine 0.90 Estim Creat Clear Calc 91 Estimated GFR > 60 Glucose 93 Calcium 7.1 L Preliminary micro results at discharge 02/12/23 14:10 Anaerobic Culture - Preliminary Abscess Aerobic Culture - Preliminary 02/10/23 09:52 Blood Culture - Preliminary Blood
[2023-02-15 08:43] VITALS: PULSE 80
[2023-02-15] MEDS: POLYSACCHARIDE IRON COMPLEX 150 MG CAPSULE PO (08:43)
[2023-02-15] MEDS: METOPROLOL TARTRATE 50 MG TAB 100 MG PO (08:43)
[2023-02-15] MEDS: amLODIPine BESYLATE 5 MG TABLET PO (08:43)
== END 2023-02-15 11:01 | disposition home or self-care (01) | DRG 862 ==
LOC: ANHED 12:57 → ANH3MEDSUR 15:18
PROVIDERS: Emergency Medicine; Nurse Practitioner Family; Admitting Provider Surgery; Emergency Provider Physician Assistant; PCP Emergency Medicine; Visit Provider Surgery
DX: T81.43XA Infection following a procedure, organ and space surgical site, initial encounter (principal); K65.1 Peritoneal abscess; D62 Acute posthemorrhagic anemia; Z20.822 Contact with and (suspected) exposure to COVID-19; I10 Essential (primary) hypertension; Z90.49 Acquired absence of other specified parts of digestive tract
CPT/HCPCS: 36415; 71045; 74177; 75989; 78226; 80048; 80053; 81001; 83605; 85014; 85018; 85025; 85027; 85610; 85730; 86140; 87040; 87070; 87075; 87077; 87186; 87205; 87635; 93005; 96361; 96365; 99285; A9270; A9537; C1729; C1769; G0378; J2270; J2405; J2543; J7030; Q9967

== ENCOUNTER 2023-02-22 08:08 | Outpatient (CLI) | payer BC, OTHER, SELFPAY ==
--- NOTE | ~2023-02-22 | CT_ITS ---
EXAMINATION: CT abdomen w con DATE: 02/22/2023 08:37 INDICATION: Peritoneal abscess. TECHNIQUE: Computed tomography (CT) of the abdomen was performed with 100 mL Omnipaque 350 intravenou s contrast. Automated exposure control and iterative reconstruction technique were employed. The dose -length product was 834.28 mGy-cm. COMPARISON: CT abdomen and pelvis 02/10/2023 FINDINGS: The visualized portions of the lung bases demonstrate mild atelectasis. A calcified right l ana nodule and calcified right hilar lymph nodes are consistent with old granulomatous disease. No pl eural effusion. The heart size is normal. No pericardial effusion. There is a 4 mm cyst in the liver. There is a 10.5 x 9.9 x 9.6 cm mass of heterogeneous density containing gas in the gallbladder fossa , consistent with abscess. There is a percutaneous drain within the abscess. There is fat stranding i n the right upper quadrant, consistent with inflammation. Pneumobilia is noted. Calcifications in the spleen are consistent with old granulomatous disease. The pancreas and adrenal glands are normal. Th ere are cysts in the kidneys measuring up to 5.4 cm on the left. There are no dilated loops of bowel. There is mild periportal lymphadenopathy, likely reactive. There is no free intraperitoneal fluid. T here is a benign bone island in right ilium. There is mild lumbar spondylosis. There are bridging end plate osteophytes at multiple levels in the thoracic spine, consistent with diffuse idiopathic skelet al hyperostosis (DISH). IMPRESSION: 1. 10.5 x 9.9 x 9.6 cm abscess in the gallbladder fossa, not significantly changed from 10.9 x 8.2 x 8.5 cm on 02/10/2023. Pigtail drain (12 [place]) in expected position. Reviewed, dictated and finalized at location A. IMPRESSION: 1. 10.5 x 9.9 x 9.6 cm abscess in the gallbladder fossa, not significantly pollock ged from 10.9 x 8.2 x 8.5 cm on 02/10/2023. Pigtail drain (12 [place]) in expecte d position.
[2023-02-22 08:26] LABS: Estimated Glomerular Filt Rate 56
== END 2023-02-22 08:09 ==
PROVIDERS: PCP Surgery; Visit Provider Surgery
DX: K65.1 Peritoneal abscess (principal)
CPT/HCPCS: 74160; Q9967

== ENCOUNTER 2023-02-22 12:56 | Outpatient (CLI) | payer BC, OTHER, SELFPAY ==
--- NOTE | ~2023-02-22 | CT_ITS ---
EXAMINATION: CT guide absc cath placement DATE: 02/22/2023 13:58 INDICATION: Peritoneal abscess. TECHNIQUE: The procedure including the risks, benefits, and alternatives was discussed with the patie nt. Risks discussed included bleeding and infection. The patient understood the risks and benefits an d agreed to proceed. The skin overlying the abdomen was prepped and draped in usual sterile fashion. Anesthetic was administered with 1% lidocaine subcutaneously. The 12 [place] pigtail catheter was cut and exchanged over a guidewire for a 14 [place] pigtail catheter under CT guidance. The catheter was stitched to the skin, and a sterile dressing was applied. The mA was adjusted according to patient s ize. Iterative reconstruction technique was employed. The dose-length product was 123.12 mGy-cm. Ther e were no immediate complications. FINDINGS: CT images demonstrate the catheter within the fluid collection. No samples collected. Red-b lack blood was slowly draining at the end of the procedure. IMPRESSION: 1. Successful CT-guided peritoneal abscess drain change. Reviewed, dictated and finalized at location A.
[2023-02-22 13:50] VITALS: BP 126/73; PULSE 72; RESP 17
[2023-02-22 13:53] VITALS: BP 121/81; PULSE 75; RESP 19; O2SAT 100
[2023-02-22 14:09] VITALS: BP 128/72; PULSE 73; RESP 16
[2023-02-22 14:25] VITALS: BP 131/72; PULSE 73; RESP 16
[2023-02-22 14:48] VITALS: BP 120/67; PULSE 72; RESP 18
== END 2023-02-22 14:50 | disposition home or self-care (01) ==
PROVIDERS: Radiology Diagnostic Radiology; PCP Surgery; Visit Provider Surgery
PROC: (CPT 75989; principal; 2023-02-22 13:30)
DX: K65.1 Peritoneal abscess (principal)
CPT/HCPCS: 75989; C1729; C1769